=== PATIENT | male | born 1980 | race Caucasian/White ===

== ENCOUNTER 2016-08-28 18:06 | Inpatient (IN) | payer OTHER ==
[~2016-08-28] VITALS: Ht 190.5 cm; Wt 89.4 kg
--- NOTE | 2016-08-28 21:28 | ED ORDER SUMMARY ---
..... Patient: EVERARDO SWEENEY OrderSheet [facility] VisitID: [id number] [address] [place] [address] 36y, M Registration Date/Time: 08/28/2016 ORDER SHEET Weight: 90.7 kg (estimated) Allergies: No Known Drug Allergy GENERAL ORDERS: - (please place feet in warm water and soak them to rewarm them) (18:42 08/28/2016 HBivens A.R.N.P.) (Ack 19:18 ALawrence ER Tech1) (19:42 ALawrence ER Tech1) CBC w Diff Urgent (18:43 08/28/2016 HBivens A.R.N.P.) (Ack 18:52 KHoerner) (19:29 ALawrence ER Tech1) CMP Urgent (18:43 08/28/2016 HBivens A.R.N.P.) (Ack 18:52 KHoerner) (19:29 ALawrence ER Tech1) Urine Drug Screen Urgent (18:43 08/28/2016 HBivens A.R.N.P.) (Ack 18:52 KHoerner) (0:51 RCollier R.N.) UA-Culture if indicated Urgent (18:43 08/28/2016 HBivens A.R.N.P.) (Ack 18:52 KHoerner) (0:51 RCollier R.N.) MEDICATION ORDERS: Tdap IM 0.5 mL (NOW, per protocol) (19:15 08/28/2016 HBivens A.R.N.P.) (20:07 SSambou R.N.) IV FLUIDS: IV Saline Lock (18:43 08/28/2016 HBivens A.R.N.P.) (19:08 SSambou R.N.) Toradol IV 30 mg (NOW) (19:14 08/28/2016 HBivens A.R.N.P.) (20:02 RCollier R.N.) IV NS : initial bolus 1000 mL (1000 mL/hr), then none - (NOW) (20:01 08/28/2016 HBivens A.R.N.P.) (20:13 SSambnora R.N.) IV NS : initial bolus 1000 mL (1000 mL/hr), then none - (NOW) (21:24 08/28/2016 HBivens A.R.N.P.) (21:33 SSambou R.N.) ORDER SHEET NOTES: [Electronically signed by Niya Richards R.N. (02:38 08/29/2016)] [Electronically signed by Mariana PersaudR.N.PIris (13:22 08/30/2016)] [Electronically locked/signed by Niya Richards R.N. (02:38 08/29/2016)]
--- NOTE | 2016-08-28 21:28 | ED NURSING NOTES ---
Clinical Report - Nurses [facility] [address] [place] [address] 08/28/2016 18:06 Patient: EVERARDO SWEENEY TRIAGE Acuity: LEVEL 3. Chief Complaint: (Serra bite bilateral lower extremities). --18:18 Sheriff Guallpa R.N. 18:11 08/28/16. BP: 130/76. HR: 117. RR: 20. O2 saturation: 97%. Temp: 98.1 F. Pain level now: 03/20. --18:18 Sheriff Guallpa R.N. 18:11 08/28/16. BP: 130/76. HR: 117. RR: 20. O2 saturation: 97%. Temp: 98.1 F. Pain level now: 03/20. --18:18 Sheriff Guallpa R.N. Weight: 90.7 kg estimated. Height/Length: 75 inches Estimated. BMI: 25. --02:37 Niya Richards R.N. Medications None. --18:13 Sheriff Guallpa R.N. Allergies No Known Drug Allergy. --18:13 Sheriff Guallpa R.N. History This started yesterday. ( [place] the mountains [place] swimming [place] river in [place] SURGERY HX: ( Left Arm, Rt shoulder, Rt Ankle). SOCIAL HX: Light tobacco smoker- less than 1/2 a pack per day. No alcohol use or drug use. FALL RISK ASSESSMENT: Fall risk assessment completed. No fall risk identified. NUTRITIONAL RISK ASSESSMENT: The nutritional risk assessment revealed no deficiencies. FUNCTIONAL ASSESSMENT: Functional assessment: no impairments noted. LEARNING NEEDS ASSESSMENT: The learning needs assessment revealed no barriers. SKIN INTEGRITY ASSESSMENT: Abrasions noted on the right ankle. Abrasions, cuts and pressure sore with shallow crater (Stage II) noted on the left heel. --18:18 Sheriff Guallpa R.N. PROBLEMS: Alcoholism. Anxiety Reaction. --18:14 Sheriff Guallpa R.N. Interventions ID band on patient. To room. --18:18 Sheriff Guallpa R.N. PHYSICAL ASSESSMENT To room via stretcher. Patient gowned. GENERAL / NEURO / PSYCH: Alert. Oriented X 4. Appears in pain and anxious. HEENT: Pupils equal, round and reactive to light. No facial asymmetry noted. Mucous membranes are pink. RESPIRATORY: Respirations not labored. CVS: ( Bilateral lower extremities serra bite). SKIN: Skin is warm and dry. Abrasions and cuts noted on both heels. --18:20 Sheriff Guallpa R.N. NURSING PROGRESS NOTES Head of bed elevated. Two patient identifiers checked. Call light placed in reach. Side rails up x 2. Bed placed in lowest position. Brakes of bed on. Patient ready for evaluation- chart flagged. --18:21 Sheriff Guallpa R.N. 18:53 08/28/2016 Site #1 started via IV in the right upper arm with an 20g angiocath, with aseptic technique and good blood return; one attempt. Blood drawn: rainbow set. Labeled in the presence of the patient and sent to the lab. Saline lock flushed with 10 mL saline. --19:08 Sheriff Guallpa R.N. 20:02 08/28/2016 Toradol IVP 30 mg given over 1 minute(s) via site #1. Allergies verified and confirmed 5 rights. IV patency established site checked: no pain, redness, or swelling flushed thoroughly pre- and post-medication administration. IVP given by RN. --20:02 Niya Richards R.N. 20:07 08/28/2016 TDAP IM 0.5 mL given. (Lot#: [id number], expiration date: 03/18/2018). Given in the left deltoid. Allergies verified and confirmed 5 rights. Vaccine information statement provided to the patient. --20:07 Sheriff Guallpa R.N. 20:13 08/28/2016 Started bag #1 1000 mL IV Fluids IV NS (Saline); at 999 mL/hr over 45 minute(s) via site #1. Allergies verified and confirmed 5 rights. IV patency established site checked: no pain, redness, or swelling flushed thoroughly pre- and post-medication administration. --20:13 Sheriff Guallpa R.N. 21:31 08/28/16. BP: 111/55. HR: 128. RR: 20. O2 saturation: 98%. Temp: 99.3 F. Pain level now: 210. --21:32 Sheriff Guallpa R.N. 21:33 08/28/2016 Started bag #1 1000 mL IV Fluids IV NS (Saline); at 999 mL/hr over 1 minute(s) via site #1. Allergies verified and confirmed 5 rights. IV patency established site checked: no pain, redness, or swelling flushed thoroughly pre- and post-medication administration. --21:33 Sheriff Guallpa R.N. ( gave patient a sandwich,cheese and jello and gatorade around 2100). --23:34 Candace Lin 00:37 08/29/16. BP: 119/54. HR: 95. RR: 15. O2 saturation: 96% on room air. Temp: 99.4 F (oral). Pain level now: 010. --00:38 Niya Richards R.N. ( additional warm water added to tubs feet are soaking in. Pt asks to lay down, buckets placed on stools to facilitate pt laying down.). --00:40 Niya Richards R.N. 21:15 08/28/2016 IV Fluids IV NS Discontinued: bag #1 completed. Total amount infused: 1000 mL. IV patency established. IV site checked: no pain, redness, or swelling. IV flushed thoroughly. (stopped prior to my assuming care of pt.). --00:58 Niya Richards R.N. 22:25 08/28/2016 IV Fluids IV NS Discontinued: bag #2 completed. Total amount infused: 1000 mL. IV patency established. IV site checked: no pain, redness, or swelling. IV flushed thoroughly. (stopped prior to my assuming care of pt). --00:59 Niya Richards R.N. 00:45 08/29/2016 Site #1; patent and no signs of infection or infiltration. Line flushed with saline. Flushed with 10 mL saline. No pain noted. --00:59 Niya Richards R.N. DISPOSITION / DISCHARGE 01:38 08/29/16. BP: 113/70. HR: 101. RR: 15. O2 saturation: 96% on room air. --01:39 Niya Richards R.N. 01:39 08/29/2016 Site #[address] upon admission. Flushed with 10 mL saline; flushes easily. --01:39 Niya Richards R.N. Report was given to a nurse via a phone call. Report included patient's care, treatment, medications, reviewed medication reconcilliation, and condition (including any recent changes or anticipated changes). All questions were answered. Report was acknowledged and care was transferred. --01:39 Niya Richards R.N. 01:40. Transported via stretcher by nurse with IV. --02:37 Niya Richards R.N. Locked/Released at 08/29/2016 2:38 by Niya Richards R.N.
--- NOTE | 2016-08-28 21:28 | ED CLINICAL REPORT ---
Clinical Report - Physicians/Mid Levels [facility] [address] [place] [address] 08/28/2016 18:06 Patient: EVERARDO SWEENEY Time Seen: 1814; initial patient contact, initial documentation, patient care assumed. Arrived- By private vehicle. Historian- patient. HISTORY OF PRESENT ILLNESS Chief Complaint: LOWER EXTREMITY ALTERED SENSATION and ; ;(frostbite). This started yesterday and is still present. Severity is described as being severe. The quality is noted to be "pain". No radiation. Not relieved by anything- worsened by walking. Symptoms located in the area of the right foot and left foot. The patient has not had redness. No swelling, bladder dysfunction, bowel dysfunction or motor loss. He has had difficulty walking. Sensory loss. ( pt states that yesterday he heard voices and he took off in his car out to [place] to the mountains, got down to his boxer underwear and went running thru the mountains and in the river, no shoes, pt found today and brought in). Patient notes an injury. Mechanism of injury- (frostbite). Occurred in the mountains (river). Similar symptoms previously: None. Recent medical care: Not recently seen/assessed. REVIEW OF SYSTEMS No chest pain, difficulty breathing, fever, neck pain or back pain. No abdominal pain. c/o his feet being super cold, numb, and hard to move them, also c/o being cold all over, having numerous scratches on his arms and legs from running into blackberry bushes, c/o feet being discolored and being very white. All systems otherwise negative, except as recorded above. PAST HISTORY See nurses notes. ( PROBLEMS: Alcoholism. Anxiety Reaction. --18:14 Sheriff Guallpa R.N.). SOCIAL HISTORY Light tobacco smoker. Occasional alcohol use. No drug use. No recent travel. Is a local resident. FAMILY HISTORY Negative. ADDITIONAL NOTES The nursing notes have been reviewed with agreement regarding the chief complaint, HPI, ROS, PMH and patient medications and allergies. PHYSICAL EXAM Vital Signs: 08/28/2016 18:11 BP: 130/76. HR: 117. RR: 20. O2 saturation: 97%. Temp: 98.1 F. Pain level now: 03/20. Have been reviewed as abnormal and appear to be correct. Blood pressure normal. Tachycardic. Respiratory rate normal. Temperature normal. Oxygen saturation normal. Appearance: Alert. Oriented X3. No acute distress. Eyes: Pupils equal, round and reactive to light. Eyes normal inspection. ENT: Ears normal. Nose normal. Pharynx normal. Neck: Normal inspection. Neck supple. CVS: Heart rate / rhythm abnormal. Tachycardia (ventricular rate = 110). Heart sounds normal. Respiratory: No respiratory distress. Breath sounds normal. Abdomen: Soft and nontender. No organomegaly. Back: Normal inspection. No tenderness. ROM normal. Skin: Skin not intact. Skin dry but cool. Abnormal skin color. Normal skin turgor. Extremities: Lower extremities do not exhibit normal ROM. Lower extremity edema present. (multiple abrasions all over lower and upper extremeties, no s/s of infection, no dc, no swelling B feet- frostbite obvious, with questionable tissue necrosis noted to B toe 1, 2, toes very dark purple, almost black, no sensation, unable to move them, toes stiff, cold, no cap refill and sores/abrasions present on medial side of big toes, toes 3 less purple, no sensation, no movement, toes 4 & 5 light purple to blue, very minimal sensation, no movement, no cap refill in any toes, rest of feet range from dark purple to blue, blue continues to ankle area where erythema becomes visible and there is some sensation, cold to cool to touch, decreased rom of ankles, erythema continues up ankles to knee and disappears by the knees, going from redder to pink to white, from of knees, and popliteal pulses intact, legs cool from knees up, thighs appear normal except for the abrasions and mildly cool, femoral pulses normal +2). Extremities not otherwise negative. Gait: Abnormal gait. Neuro: Oriented X 3. No motor deficit. Sensory deficit noted. Sensory deficit present. PROGRESS AND PROCEDURES Course of Care: 1824. asked dr ndiaye to come to bedside to exam feet with me 183. asked staff to place feet in warm water for rewarming, pt already covered in warm blankets 1844. rest of exam finished 1944. pt asleep resting quietly, nad, resp even and unlabored, water cool, no real change in looks of feet asked staff to replace water 2019. Discussed admit with Dr Jeffrey, after reviewing pt's case, frostbite being due to pt hearing voices and psych hx, thought pt would do better at [facility], where they have psychiatry services available asked nurse to continue with warm soaks as water cools and keep the warm blankets on pt as well 2049. Electric Relay Tester reporting that she spoke to the Structural Engineering Technician at [facility], and that the hospitalist declined the transfer, stating we could treat frostbite here, explained psych issue, but still declined 2119. Spoke to Dr Jeffrey, again, aware that the hospitalist at [facility] declined the transfer, and he agreed to take the pt and admit here, transfer out for psych later if needed pt feeling better, and had eaten, feet and ankles appear really no different than initial exam, except possibly a little less purple, still concerned that the digits are necrotic and concerns were voiced to nurse/care team and pt. Discussed case with on-call health care provider, (call returned 2019 Dr Jeffrey). Reviewed test results. Differential Diagnosis: Other possible considerations: substance abuse, psychosis, bipolar, abrasions, lacs, frostbite. Above considerations are based on history, physical exam, reassessment and laboratory data. Differential diagnosis was discussed with patient. Disposition: Admitted to Acute Care. 21:28. Condition: good and stable. CLINICAL IMPRESSION Multiple superficial abrasions to the right forearm, right wrist, right hand, right thigh, right knee, right lower leg, right ankle and right foot and left forearm, left wrist, left hand, left thigh, left knee, left lower leg, left ankle and left foot. Frostbite with partial thickness skin loss involving the right 3rd toe, right 4th toe, right 5th toe, left 3rd toe, left 4th toe and left 5th toe. Frostbite with full thickness tissue necrosis involving the right great toe, right 2nd toe, left great toe and left 2nd toe. (Electronically signed by Mariana Persaud A.R.N.P. 08/30/2016 13:22)
--- NOTE | 2016-08-28 21:28 | ED ORDER SUMMARY ---
..... Patient: EVERARDO SWEENEY OrderSheet [facility] VisitID: [id number] [address] [place] [address] 36y, M Registration Date/Time: 08/28/2016 ORDER SHEET Weight: 90.7 kg (estimated) Allergies: No Known Drug Allergy GENERAL ORDERS: - (please place feet in warm water and soak them to rewarm them) (18:42 08/28/2016 HBivens A.R.N.P.) (Ack 19:18 ALawrence ER Tech1) (19:42 ALawrence ER Tech1) CBC w Diff Urgent (18:43 08/28/2016 HBivens A.R.N.P.) (Ack 18:52 KHoerner) (19:29 ALawrence ER Tech1) CMP Urgent (18:43 08/28/2016 HBivens A.R.N.P.) (Ack 18:52 KHoerner) (19:29 ALawrence ER Tech1) Urine Drug Screen Urgent (18:43 08/28/2016 HBivens A.R.N.P.) (Ack 18:52 KHoerner) (0:51 RCollier R.N.) UA-Culture if indicated Urgent (18:43 08/28/2016 HBivens A.R.N.P.) (Ack 18:52 KHoerner) (0:51 RCollier R.N.) MEDICATION ORDERS: Tdap IM 0.5 mL (NOW, per protocol) (19:15 08/28/2016 HBivens A.R.N.P.) (20:07 SSambou R.N.) IV FLUIDS: IV Saline Lock (18:43 08/28/2016 HBivens A.R.N.P.) (19:08 SSambou R.N.) Toradol IV 30 mg (NOW) (19:14 08/28/2016 HBivens A.R.N.P.) (20:02 RCollier R.N.) IV NS : initial bolus 1000 mL (1000 mL/hr), then none - (NOW) (20:01 08/28/2016 HBivens A.R.N.P.) (20:13 SSambnora R.N.) IV NS : initial bolus 1000 mL (1000 mL/hr), then none - (NOW) (21:24 08/28/2016 HBivens A.R.N.P.) (21:33 SSambou R.N.) ORDER SHEET NOTES: [Electronically signed by Niya Richards R.N. (02:38 08/29/2016)] [Electronically signed by Mariana PersaudR.N.PIris (13:22 08/30/2016)] [Electronically locked/signed by Niya Richards R.N. (02:38 08/29/2016)]
--- NOTE | 2016-08-29 00:35 | Progress Note ---
Subjective General Admission History and Physical Examination Patient Name: Baltazar Kim Admission Date: August 28, 2016 Primary Care Provider: None Attending Physician: Hardy Jeffrey M.D. Admitting Physician: Hardy Jeffrey M.D. Code Status: Full Code Room: 208 SUBJECTIVE Historian: Patient Reliability: Fair-poor Chief Complaint: Frostbite History of Present Illness: The patient is a 36-year-old white male with a previous history of psychiatric disease who presented to [facility] emergency department secondary to suspected frostbite of both feet. [facility] ER evaluation was consistent with probable frostbite both feet, auditory hallucinations. Secondary to the above, the patient was admitted by Hardy Jeffrey M.D. for further evaluation and treatment. The [place] only in undewear walking in the snow. Patient confused at time of presentation. No other history available. ER Evaluation consistent with frostbite feet, illicit drug use-methamphetatmine. Patient not hypothermic. Secondary to above patient admitted for further evaluation and treatment. PAST MEDICAL HISTORY Illnesses: 1. Illicit drug use-methamphetamine 2. History of alcohol abuse Allergies: 1. No Known Drug Allergies Medications: 1. None Surgery: 1. Left shoulder surgery 2. Cyst removal Injuries: 1. Fractured ribs x 3 2. AC separation Hospitalizations: 1. For above surgery FAMILY HISTORY Parents: 1. Father, , 67, lung cancer 2. Mother, Living, 62, Healthy Other significant family history: None SOCIAL HISTORY 1. Marital Status: Single 2. Christianity: Agnostic 3. Education: High school, 1 year college 4. Employment History: Unemployed, Insurance sales, scuba instructor in past. 5. Occupational health exposures: None HABITS 1. Tobacco: Past use 2. Drugs: Marijuana, Methamphetamine, 3. Alcohol: None 4. Caffeine: 1 cup coffee daily HEALTH SUPERVISION Item/Test 1. No recent IMMUNIZATIONS: 1. Pneumococcal: No 2. Influenza: No recent 3. Tetanus: Unknown ADVANCED DIRECTIVES: 1. Living well: Yes 2. POLST: No 3. Code Status: Full Code 4. Durable Power Director Private Health care: No 5. Donor card: Yes REVIEW OF SYSTEMS Remarkable for those things stated in the history of present illness and past medical history. Seventeen point review of system completed with the following notable findings: Skin: See above Physical Exam Vital Signs / I&Os Blood pressure: 130/76 mmHg Pulse: 117 Respirations: 20 Temperature: 98.1 O2 sat room air: 97% General Appearance Alert, Cooperative, No acute distress HEENT Atraumatic, PERRLA, EOMI, Moist mucous membranes Lungs Clear to auscultation, Normal air movement Neck Supple, No JVD, No masses Cardiovascular Regular rate and rhythm, Normal S1 and S2, No murmurs, gallops, rubs Abdomen Normal bowel sounds, Soft, No tenderness, No guarding Extremities No cyanosis, No clubbing, Edema bilateral feet. Cyanosis present distal foot left side, toes right side. Multiple excoriations, abrasions bilateral lower extremities/feet. See photo documentation Skin Multiple abrasions/excoriations, eschar Neurological Cranial nerves intact, Strength 5/5 x4 ext's, No lateralizing signs Psych/Mental Status Mood normal, Confused LAB Results Laboratory Tests 08/28 1858 Hematology WBC (4.5 - 11.5 K/uL) 15.8 RBC (4.50 - 5.90 M/uL) 4.44 Hgb (13.5 - 17.5 gm/dL) 13.0 Hct (41.0 - 53.0 %) 38.8 MCV (80 - 100 fL) 87 MCH (26 - 34 pg) 29 RDW (11.6 - 14.8 %) 13.3 Neut % (Auto) (50 - 75 %) 81.0 Lymph % (Auto) (25 - 40 %) 10.0 Vance % (Auto) (3 - 14 %) 8.8 Eos % (Auto) (0 - 4 %) 0 Baso % (Auto) (0 - 2 %) 0.2 Plt Count, EDTA (150 - 400 K/uL) 261 PUBS MCHC (31 - 37 g/dL) 34 Toxicology Urine Opiates Screen Cancelled Urine Methadone Screen Cancelled Ur Barbiturates Screen Cancelled U Amphetamin/Meth Scrn Cancelled MDMA (Ecstasy) Screen Cancelled U Benzodiazepines Scrn Cancelled Urine Cocaine Screen Cancelled U Cannabinoids Screen Cancelled Urines Urine Color YELLOW Urine Appearance CLEAR Urine pH (5.0 - 8.0) 6.0 Ur Specific Ron[place] (1.010 - 1.030) 1.020 Urine Protein (NEGATIVE) NEGATIVE Urine Ketones (NEGATIVE) 3+ Urine Blood (NEGATIVE) 2+ Urine Nitrite (NEGATIVE) NEGATIVE Urine Bilirubin (NEGATIVE) 1+ Ur Bilirubin Confirm (NEGATIVE) NEGATIVE Urine Urobilinogen (0.2 - 1.0 EU/dL) 0.2 Ur Leukocyte Esterase (NEGATIVE) NEGATIVE Urine RBC (0 - 1 rbc/hpf) 3-5 Urine WBC (0 - 1 wbc/hpf) 0-1 Ur Epithelial Cells (0 - 5 EPI/hpf) 0-1 Urine Bacteria (NONE SEEN) TRACE (<1+) Urine Glucose (NEGATIVE) NEGATIVE Urine Comment CULT NOT INDICATED 08/29 1827 Chemistry Plasma Sodium (136 - 145 mmol/L) 133 Plasma Potassium (3.5 - 5.1 mmol/L) 4.3 Plasma Chloride (98 - 107 mmol/L) 99 CO2 (Enzymatic) (21 - 32 mmol/L) 16 BUN (7 - 18 mg/dL) 37 Creatinine (0.6 - 1.3 mg/dL) 0.9 Est GFR ( Amer) (mL/min) >60 Est GFR (Non-Af Amer) (mL/min) >60 Glucose (70 - 110 mg/dL) 112 Plasma Calcium (8.5 - 10.1 mg/dL) 8.9 Total Bilirubin (0.0 - 1.0 mg/dL) 1.0 AST (15 - 37 U/L) 280 ALT (12 - 78 U/L) 85 Alkaline Phosphatase (46 - 116 U/L) 90 Total Protein (6.4 - 8.2 g/dL) 7.1 Albumin (3.3 - 5.0 g/dL) 3.9 Toxicology Drugs Detected Amphetamines Urine Drug Screen POSITIVE,Unconfirmed Assessment and Plan Problem List 1. Frostbite of both feet Plan -Patient presents with findings of frostbite bilateral feet -Patient not a candidate for thrombolytic therapy -Monitor -Surgical consultation -Wound care consultation 2. Illicit drug use Status Chronic Onset Date Unknown Plan -Patient with findings of illicit drug use-methamphetamine -Monitor -History of psychiatric disease, recent auditory hallucinations questionably related to drug usage 3. Hyponatremia Status Acute Onset Date Unknown Plan -Patient with mild hyponatremia -Monitor -No fluid restriction at this time. 4. Elevated LFTs Status Acute Onset Date Unknown Plan -Patient with findings of elevated LFTs -Repeat in a.m. -Further workup based on serial LFT evaluation Current status: Fair, unstable Anticipated discharge date: Anticipated discharge in 3-4 days Anticipated discharge placement: Home Patient care time: Time spent in chart review, patient interview, physical exam, CPOE, and care documentation: 70 minutes Visit to patient today: 1 Complexity of care: High E&M Codes Admission: Inpt-High/[id number]
[2016-08-29 02:01] VITALS: BP 138/62
[2016-08-29 07:48] VITALS: BP 124/72
--- NOTE | 2016-08-29 09:33 | NUR ---
SW ADVISED THIS RN THAT BRACELET TO LLE IS OK TO DC. THIS RN CUT OFF W/SCISSORS W/O PROBLEMS. NO SKIN BREAKDOWN UNDER BRACELET.
[2016-08-29 11:41] VITALS: BP 122/67
[2016-08-29 15:00] VITALS: BP 147/62
--- NOTE | 2016-08-29 16:04 | NUR ---
CHANGED DRSGS TO BILATERAL FEET THIS EVENING DUE TO SATURATING THROUGH ON SOME PARTS OF THE GAUZE. BILATERAL FEET HAVE BLISTERS AT THE SOLES WHICH ARE INTACT. FEET ARE PALE AND BLUE IN SOME AREAS. L FOOT GREAT TOE IS PURPLE IN COLOR. R FOOT SATURATED AT BOTTOM OF FOOT WHERE BLISTER IS BUT BLISTER APPEARS INTACT. DRAINAGE IS SEROSANG. L FOOT SATURATED AT GREAT TOE MEDIAL AREA AND AT DISTAL TOES. CLEANSED WITH NS AND PLACED XEROFORM TO OPEN AREAS TO AVOID DRSG STICKING TO GAUZE UPON REMOVAL. WRAPPED WITH KERLIX AND SECURED WITH FABRIC TAPE. ELEVATED LEGS ON PILLOW TO PATIENT'S COMFORT. PATIENT HAS MINIMAL SENSATION TO THE SOLES OF HIS FEET AND HAS DECREASED SENSATION TO HIS TOES. SOME TOES HE DOES NOT HAVE SENSATION IN.
--- NOTE | 2016-08-29 16:31 | NUR ---
NUTRITION NOTE: Pt admitted with frostbite bilateral feet. Pt po intake ~100%, appetite appears intact so far. Rec continue general diet as appears appropriate, RD to follow up with complete assessment per protocol.
--- NOTE | 2016-08-29 18:15 | NUR ---
PATIENT'S MOTHER ARYAN CALLED AND PATIENT OK'D THIS RN SPEAKING TO HER. UPDATED MOTHER ON PATIENT'S STATUS. THIS RN TOLD MOTHER WHAT PATIENT HAD STATED FOR HOW HE HAD END UP ADMITTED TO [facility]. MOTHER STATED THAT 'ALL OF THE STORY IS PROBABLY ACCURATE EXCEPT I DON'T THINK HE IS TELLING YOU THE TRUTH ABOUT THE DRUGS.' WILL CONTINUE TO MONITOR PATIENT.
[2016-08-29 18:30] VITALS: BP 125/72
--- NOTE | 2016-08-29 19:42 | NUR ---
SPOKE TO MOM, ARYAN AND ARYAN STATED PATIENT WAS VERY SUCCESSFUL IN INSURANCE AND STARTED USING METH ABOUT A YEAR AGO AND HAD MANY EPISODES OF PARANOIA THAT COST HIM HIS JOB AND ENDED HIM UP HOMELESS AND LIVING IN HIS CAR. MOM LIVES IN [place]. PATIENT IS ESTRANGED FROM HIS BROTHER AND SISTER DUE TO HIS DRUG USE.
[2016-08-29 22:34] VITALS: BP 129/79
--- NOTE | 2016-08-29 23:10 | NUR ---
CALLED DR ARCE REGARDING PATIETNS HIGH TEMPERATURE.
--- NOTE | 2016-08-30 02:30 | NUR ---
Hospitalist ordered IV antibiotics as the patient has developed fever. Staff also collected blood cultures as ordered.
[2016-08-30 03:40] VITALS: BP 146/95
[2016-08-30 07:18] VITALS: BP 146/67
--- NOTE | 2016-08-30 07:40 | Progress Note ---
Subjective General Note Date: August 30, 2016 Admission Date: August 29, 2016 Hospital Day: 2 PCP: None Status: Inpatient Advanced Directive: Full Code Room: 208 Brief History: The patient is a 36-year-old white male with a previous history of psychiatric disease who presented to [facility] emergency department secondary to suspected frostbite of both feet. [facility] ER evaluation was consistent with probable frostbite both feet, auditory hallucinations. Secondary to the above, the patient was admitted by Hardy Jeffrey M.D. for further evaluation and treatment. For other history present illness, past medical history, family history, social history, review of systems, and admission physical examination please see the patient's history and physical examination and ER visit note in the patient's medical record. Subjective: The patient states he is doing well other than pain in feet. Mental status unchanged-improved Patient requests: Improved pain control Medications and Allergies Medications Current Medications Sig/Mateo Start time Last Medication Dose Route Stop Time Status Admin Influenza Virus 0.5 ML 0900 08/30 0900 AC Vaccine IM 08/30 1800 Piperacillin/ 50 ML Q6HR 08/30 0200 AC 08/30 Tazobactam/Dextrose IV 0706 Vancomycin HCl See Dose .[PER PHARMACY] 08/30 011 UNi Insts (1) IV Enoxaparin Sodium 40 MG DAILY 08/29 0900 08/29 SC 0929 Pantoprazole Sodium 40 MG DAILY@0600 08/29 0600 AC 08/30 Sesquihydrate PO 0607 Acetaminophen 650 MG Q6H PRN 08/29 0115 AC 08/30 PO 0012 Docusate Sodium 250 MG BID PRN 08/29 0115 AC 08/30 PO 0012 Hydromorphone HCl 1 MG Q1H PRN 08/29 011 AC 08/29 IV 2241 Ondansetron HCl 4 MG Q6H PRN 08/29 011 AC IV Sodium Chloride 1,000 ML ASDIRECTED 08/29 011 08/30 IV 0113 Dose Instructions: (1)Vancomycin HCl: DOSING PER PHARMACY Allergies Coded Allergies: NKA (08/29/16) Physical Exam Vital Signs / I&Os Vital Signs Date Time Temp Pulse Resp B/P Pulse O2 O2 Flow FiO2 Ox Delivery Rate 08/30 0718 98.6 90 18 146/67 95 Room Air 0.0 08/30 0340 100.0 105 18 146/95 98 Room Air 08/30 0000 0.0 08/29 2234 100.8 91 18 129/79 96 Room Air 08/29 2155 98.8 08/29 1930 0.0 08/29 1830 98.8 95 18 125/72 94 Room Air 08/29 1500 98.1 93 18 147/62 100 Room Air 08/29 1141 97.9 97 18 122/67 98 Room Air 0.0 08/29 0748 98.2 92 18 124/72 98 I&O 08/30 0000 08/29 1600 08/29 0800 Intake Total 2857 680 386 Output Total 975 1000 Balance 1882 -320 386 General Appearance Alert, Oriented X3, Cooperative, No acute distress Lungs Clear to auscultation, Normal air movement Cardiovascular Regular rate and rhythm, Normal S1 and S2 Abdomen Normal bowel sounds, Soft, No tenderness Extremities No cyanosis, No clubbing, Persistent edema bilaterally feet. Persistent cyanosis with large bulla forming right and left foot. Good dorsalis pedis pulses Neurological Cranial nerves intact, No lateralizing signs Psych/Mental Status Mental status normal, Mood normal LAB Results Laboratory Tests 08/30 08/30 08/29 08/29 0530 0530 1830 1024 Chemistry Plasma Sodium (136 - 145 mmol/L) 138 138 Plasma Potassium (3.5 - 5.1 mmol/L) 4.2 4.2 Plasma Chloride (98 - 107 mmol/L) 104 105 CO2 (Enzymatic) (21 - 32 mmol/L) 28 24 BUN (7 - 18 mg/dL) 10 17 Creatinine (0.6 - 1.3 mg/dL) 0.9 0.9 Est GFR ( Amer) (mL/min) >60 >60 Est GFR (Non-Af Amer) (mL/min) >60 >60 Glucose (70 - 110 mg/dL) 157 116 Plasma Calcium (8.5 - 10.1 mg/dL) 7.8 8.0 Total Bilirubin (0.0 - 1.0 mg/dL) 0.6 AST (15 - 37 U/L) 218 ALT (12 - 78 U/L) 94 Alkaline Phosphatase (46 - 116 U/L) 62 Creatine Kinase (24 - 260 U/L) 91201 9690 9200 CK-MB (CK-2) (0.5 - 3.2 ng/mL) 47.9 79.3 91.2 CK/CKMB % Calc (0.0 - 4.0 %) 0.5 0.8 1.0 Total Protein (6.4 - 8.2 g/dL) 5.5 Albumin (3.3 - 5.0 g/dL) 2.7 Hematology WBC (4.5 - 11.5 K/uL) 9.1 RBC (4.50 - 5.90 M/uL) 3.59 Hgb (13.5 - 17.5 gm/dL) 10.6 Hct (41.0 - 53.0 %) 31.8 MCV (80 - 100 fL) 88 MCH (26 - 34 pg) 29 RDW (11.6 - 14.8 %) 13.4 Neut % (Auto) (50 - 75 %) 67.3 Lymph % (Auto) (25 - 40 %) 19.1 [place] % (Auto) (3 - 14 %) 12.3 Eos % (Auto) (0 - 4 %) 1.2 Baso % (Auto) (0 - 2 %) 0.1 Plt Count, EDTA (150 - 400 K/uL) 138 PUBS MCHC (31 - 37 g/dL) 33 Microbiology Date/Time Procedure - Status Source Growth 08/30 220 Blood Culture - RECD BLOOD 08/30 216 Blood Culture - RECD BLOOD Imaging CT Scan Feet IMPRESSION: 1. Smooth fluid-filled blisters along the plantar surface of both feet without evidence of gas-forming organism or underlying radiodense foreign body. 2. Fairly extensive subcutaneous edema medial and lateral in the feet extending cranial towards the ankles. 3. Osseous structures appear normal. Dictated by: RICAHRD WALDRON MD D: MOISES;08/30/16 1621 Assessment and Plan Problem List 1. Frostbite of both feet Plan -Persistent findings of tissue damage bilaterally feet -Evaluation by Dr. Niño today. -CT scan shows extensive edema without findings of soft tissue foreign body or abscess. -Patient with fever. -Initiate antimicrobial therapy with vancomycin/Zosyn 2. Illicit drug use Status Chronic Onset Date Unknown Plan -Patient with history of extensive use of methamphetamine -No problems at this time -Mental status improved -Enroll in drug treatment program post hospitalization 3. Hyponatremia Status Acute Onset Date Unknown Plan -Resolved -Sodium 138 4. Elevated LFTs Status Acute Onset Date Unknown Plan -LFTs mildly elevated -Stable to slightly improved -Bilirubin unremarkable, alkaline phosphatase unremarkable -Monitor 5. Rhabdomyolysis Status Acute Onset Date Unknown Plan -Patient with findings of rhabdomyolysis -Renal function stable -CPK 10,166 today -Continue IV hydration -Urinary output good 6. Cellulitis Status Acute Onset Date Unknown Plan -Patient with findings suggestive of possible cellulitis bilateral feet -Vancomycin/Zosyn -Monitor Current status: Fair, unstable Anticipated discharge date: Unknown Anticipated discharge placement: Home versus senior care facility Patient care time: Time spent in chart review, patient interview, physical exam, CPOE, and care documentation: 35 minutes Visit to patient today: 2 Complexity of care: Moderate E&M Codes Rounding: Inpt-Moderate/87354
--- NOTE | 2016-08-30 07:40 | Progress Note ---
Subjective General Note Date: August 30, 2016 Admission Date: August 29, 2016 Hospital Day: 2 PCP: None Status: Inpatient Advanced Directive: Full Code Room: 208 Brief History: The patient is a 36-year-old white male with a previous history of psychiatric disease who presented to [facility] emergency department secondary to suspected frostbite of both feet. [facility] ER evaluation was consistent with probable frostbite both feet, auditory hallucinations. Secondary to the above, the patient was admitted by Hardy Jeffrey M.D. for further evaluation and treatment. For other history present illness, past medical history, family history, social history, review of systems, and admission physical examination please see the patient's history and physical examination and ER visit note in the patient's medical record. Subjective: The patient states he is doing well other than pain in feet. Mental status unchanged-improved Patient requests: Improved pain control Medications and Allergies Medications Current Medications Sig/Mateo Start time Last Medication Dose Route Stop Time Status Admin Influenza Virus 0.5 ML 0900 08/30 0900 AC Vaccine IM 08/30 1800 Piperacillin/ 50 ML Q6HR 08/30 0200 AC 08/30 Tazobactam/Dextrose IV 0706 Vancomycin HCl See Dose .[PER PHARMACY] 08/30 011 UNi Insts (1) IV Enoxaparin Sodium 40 MG DAILY 08/29 0900 08/29 SC 0929 Pantoprazole Sodium 40 MG DAILY@0600 08/29 0600 AC 08/30 Sesquihydrate PO 0607 Acetaminophen 650 MG Q6H PRN 08/29 0115 AC 08/30 PO 0012 Docusate Sodium 250 MG BID PRN 08/29 0115 AC 08/30 PO 0012 Hydromorphone HCl 1 MG Q1H PRN 08/29 011 AC 08/29 IV 2241 Ondansetron HCl 4 MG Q6H PRN 08/29 011 AC IV Sodium Chloride 1,000 ML ASDIRECTED 08/29 011 08/30 IV 0113 Dose Instructions: (1)Vancomycin HCl: DOSING PER PHARMACY Allergies Coded Allergies: NKA (08/29/16) Physical Exam Vital Signs / I&Os Vital Signs Date Time Temp Pulse Resp B/P Pulse O2 O2 Flow FiO2 Ox Delivery Rate 08/30 0718 98.6 90 18 146/67 95 Room Air 0.0 08/30 0340 100.0 105 18 146/95 98 Room Air 08/30 0000 0.0 08/29 2234 100.8 91 18 129/79 96 Room Air 08/29 2155 98.8 08/29 1930 0.0 08/29 1830 98.8 95 18 125/72 94 Room Air 08/29 1500 98.1 93 18 147/62 100 Room Air 08/29 1141 97.9 97 18 122/67 98 Room Air 0.0 08/29 0748 98.2 92 18 124/72 98 I&O 08/30 0000 08/29 1600 08/29 0800 Intake Total 2857 680 386 Output Total 975 1000 Balance 1882 -320 386 General Appearance Alert, Oriented X3, Cooperative, No acute distress Lungs Clear to auscultation, Normal air movement Cardiovascular Regular rate and rhythm, Normal S1 and S2 Abdomen Normal bowel sounds, Soft, No tenderness Extremities No cyanosis, No clubbing, Persistent edema bilaterally feet. Persistent cyanosis with large bulla forming right and left foot. Good dorsalis pedis pulses Neurological Cranial nerves intact, No lateralizing signs Psych/Mental Status Mental status normal, Mood normal LAB Results Laboratory Tests 08/30 08/30 08/29 08/29 0530 0530 1830 1024 Chemistry Plasma Sodium (136 - 145 mmol/L) 138 138 Plasma Potassium (3.5 - 5.1 mmol/L) 4.2 4.2 Plasma Chloride (98 - 107 mmol/L) 104 105 CO2 (Enzymatic) (21 - 32 mmol/L) 28 24 BUN (7 - 18 mg/dL) 10 17 Creatinine (0.6 - 1.3 mg/dL) 0.9 0.9 Est GFR ( Amer) (mL/min) >60 >60 Est GFR (Non-Af Amer) (mL/min) >60 >60 Glucose (70 - 110 mg/dL) 157 116 Plasma Calcium (8.5 - 10.1 mg/dL) 7.8 8.0 Total Bilirubin (0.0 - 1.0 mg/dL) 0.6 AST (15 - 37 U/L) 218 ALT (12 - 78 U/L) 94 Alkaline Phosphatase (46 - 116 U/L) 62 Creatine Kinase (24 - 260 U/L) 03154 9690 9200 CK-MB (CK-2) (0.5 - 3.2 ng/mL) 47.9 79.3 91.2 CK/CKMB % Calc (0.0 - 4.0 %) 0.5 0.8 1.0 Total Protein (6.4 - 8.2 g/dL) 5.5 Albumin (3.3 - 5.0 g/dL) 2.7 Hematology WBC (4.5 - 11.5 K/uL) 9.1 RBC (4.50 - 5.90 M/uL) 3.59 Hgb (13.5 - 17.5 gm/dL) 10.6 Hct (41.0 - 53.0 %) 31.8 MCV (80 - 100 fL) 88 MCH (26 - 34 pg) 29 RDW (11.6 - 14.8 %) 13.4 Neut % (Auto) (50 - 75 %) 67.3 Lymph % (Auto) (25 - 40 %) 19.1 [place] % (Auto) (3 - 14 %) 12.3 Eos % (Auto) (0 - 4 %) 1.2 Baso % (Auto) (0 - 2 %) 0.1 Plt Count, EDTA (150 - 400 K/uL) 138 PUBS MCHC (31 - 37 g/dL) 33 Microbiology Date/Time Procedure - Status Source Growth 08/30 220 Blood Culture - RECD BLOOD 08/30 216 Blood Culture - RECD BLOOD Imaging CT Scan Feet IMPRESSION: 1. Smooth fluid-filled blisters along the plantar surface of both feet without evidence of gas-forming organism or underlying radiodense foreign body. 2. Fairly extensive subcutaneous edema medial and lateral in the feet extending cranial towards the ankles. 3. Osseous structures appear normal. Dictated by: RICHARD WALDRON MD D: MOISES;08/30/16 1627 Assessment and Plan Problem List 1. Frostbite of both feet Plan -Persistent findings of tissue damage bilaterally feet -Evaluation by Dr. Niño today. -CT scan shows extensive edema without findings of soft tissue foreign body or abscess. -Patient with fever. -Initiate antimicrobial therapy with vancomycin/Zosyn 2. Illicit drug use Status Chronic Onset Date Unknown Plan -Patient with history of extensive use of methamphetamine -No problems at this time -Mental status improved -Enroll in drug treatment program post hospitalization 3. Hyponatremia Status Acute Onset Date Unknown Plan -Resolved -Sodium 138 4. Elevated LFTs Status Acute Onset Date Unknown Plan -LFTs mildly elevated -Stable to slightly improved -Bilirubin unremarkable, alkaline phosphatase unremarkable -Monitor 5. Rhabdomyolysis Status Acute Onset Date Unknown Plan -Patient with findings of rhabdomyolysis -Renal function stable -CPK 10,166 today -Continue IV hydration -Urinary output good 6. Cellulitis Status Acute Onset Date Unknown Plan -Patient with findings suggestive of possible cellulitis bilateral feet -Vancomycin/Zosyn -Monitor Current status: Fair, unstable Anticipated discharge date: Unknown Anticipated discharge placement: Home versus [facility] Patient care time: Time spent in chart review, patient interview, physical exam, CPOE, and care documentation: 35 minutes Visit to patient today: 2 Complexity of care: Moderate E&M Codes Rounding: Inpt-Moderate/57299
--- NOTE | 2016-08-30 08:35 | NUR ---
RECEIVED PT AWAKE, ALERT, ORIENTED, COHERENT, COOPERATIVE. V/S TAKEN AND RECORDED. ASSESSMENT DONE. PT COMPLAINT OF 5/10 PAIN LEVEL ON BOTH L.E. DIMINISHED SENSATION, SWELLING ON BOTH FEET. DRESSING ON BOTH FEET WITH DRIED BLOOD. SEEN AND EXAMINED BY DR FLEMING AND MS CHRISTINE EARLIER. WAITING FOR DR THORPE TO SEE PT. PT UNDERSTOOD. DUE MEDS GIVEN. NEEDS ATTENDED.
[2016-08-30 11:05] VITALS: BP 142/83
--- NOTE | 2016-08-30 13:23 | ED MAR SUMMARY ---
..... Medication Administration Record [facility] [address] [place] [address] Patient: EVERARDO SWEENEY Visit ID: [id number] 36y, M Weight: 90.7 kg Height/Length: 75 in BMI: 25 ALLERGIES: No Known Drug Allergy Given 20:02 08/28/2016 Niya Richards R.N. Medication Administered: TORADOL [IVP], Dose: 30 mg IVP over 1 minute(s), Site: #1 right upper arm. Medication Ordered: Toradol IV 30 mg (NOW). Given 20:07 08/28/2016 Sheriff Guallpa R.N. Medication Administered: TDAP [IM], Dose: 0.5 mL IM. Medication Ordered: Tdap IM 0.5 mL (NOW, per protocol). Start 20:13 08/28/2016 Sheriff Guallpa R.N., Stop 21:15 08/28/2016 Niya Richards R.N. Medication Administered: IV NS (SALINE), Dose: IV Fluids over 45 minute(s), Rate: 999 mL/hr, Dispensed: 1000 mL bag, Site: #1 right upper arm. Medication Ordered: IV NS : initial bolus 1000 mL (1000 mL/hr), then none - (NOW). Start 21:33 08/28/2016 Sheriff Guallpa R.N., Stop 22:25 08/28/2016 Niya Richards RIrisNIris Medication Administered: IV NS (SALINE), Dose: IV Fluids over 1 minute(s), Rate: 999 mL/hr, Dispensed: 1000 mL bag, Site: #1 right upper arm. Medication Ordered: IV NS : initial bolus 1000 mL (1000 mL/hr), then none - (NOW).
--- NOTE | 2016-08-30 13:23 | ED MED RECONCILIATION SUMMARY ---
Patient: EVERARDO SWEENEY Medication Reconciliation Report [facility] VisitID: [id number] [address] [place] [address] 36y, M Registration Date/Time: 08/28/2016 Weight: 90.7 kg Height/Length: 75 in. BMI: 25.0 ALLERGIES: No Known Drug Allergy The patient's Home Medications are listed below: NONE. The source(s) of the original Home Medication information: Not obtained. The following Medications were given to the patient in the Emergency Department: Toradol [IVP] IVP 30 mg, administered: 08/28/2016 8:02:00 PM TDAP [IM] IM 0.5 mL, administered: 08/28/2016 8:07:00 PM IV NS IV Fluids bolus 0, then 999 mL/hr, administered: 08/28/2016 8:13:00 PM IV NS IV Fluids bolus 0, then 999 mL/hr, administered: 08/28/2016 9:33:00 PM The following Medications were prescribed to the patient: None.
--- NOTE | 2016-08-30 13:23 | ED DISCHARGE INSTRUCTIONS ---
Patient: EVERARDO SWEENEY General Instructions [facility] VisitID: [id number] [address] [place] [address] 36y, M Registration Date/Time: 08/28/2016 Multiple superficial abrasions to the right forearm, right wrist, right hand, right thigh, right knee, right lower leg, right ankle and right foot and left forearm, left wrist, left hand, left thigh, left knee, left lower leg, left ankle and left foot. Frostbite with partial thickness skin loss involving the right 3rd toe, right 4th toe, right 5th toe, left 3rd toe, left 4th toe and left 5th toe. Frostbite with full thickness tissue necrosis involving the right great toe, right 2nd toe, left great toe and left 2nd toe. (Electronically signed by Mariana Persaud A.R.N.P. 08/30/2016 13:22)
--- NOTE | 2016-08-30 13:23 | ED DISCHARGE INSTRUCTIONS ---
Patient: EVERARDO SWEENEY General Instructions [facility] VisitID: [id number] [address] [place] [address] 36y, M Registration Date/Time: 08/28/2016 Multiple superficial abrasions to the right forearm, right wrist, right hand, right thigh, right knee, right lower leg, right ankle and right foot and left forearm, left wrist, left hand, left thigh, left knee, left lower leg, left ankle and left foot. Frostbite with partial thickness skin loss involving the right 3rd toe, right 4th toe, right 5th toe, left 3rd toe, left 4th toe and left 5th toe. Frostbite with full thickness tissue necrosis involving the right great toe, right 2nd toe, left great toe and left 2nd toe. (Electronically signed by Mariana Persaud A.R.N.P. 08/30/2016 13:22)
--- NOTE | 2016-08-30 13:23 | ED MED RECONCILIATION SUMMARY ---
Patient: EVERARDO SWEENEY Medication Reconciliation Report [facility] VisitID: [id number] [address] [place] [address] 36y, M Registration Date/Time: 08/28/2016 Weight: 90.7 kg Height/Length: 75 in. BMI: 25.0 ALLERGIES: No Known Drug Allergy The patient's Home Medications are listed below: NONE. The source(s) of the original Home Medication information: Not obtained. The following Medications were given to the patient in the Emergency Department: Toradol [IVP] IVP 30 mg, administered: 08/28/2016 8:02:00 PM TDAP [IM] IM 0.5 mL, administered: 08/28/2016 8:07:00 PM IV NS IV Fluids bolus 0, then 999 mL/hr, administered: 08/28/2016 8:13:00 PM IV NS IV Fluids bolus 0, then 999 mL/hr, administered: 08/28/2016 9:33:00 PM The following Medications were prescribed to the patient: None.
--- NOTE | 2016-08-30 13:23 | ED MAR SUMMARY ---
..... Medication Administration Record [facility] [address] [place] [address] Patient: EVERARDO SWEENEY Visit ID: [id number] 36y, M Weight: 90.7 kg Height/Length: 75 in BMI: 25 ALLERGIES: No Known Drug Allergy Given 20:02 08/28/2016 Niya Richards R.N. Medication Administered: TORADOL [IVP], Dose: 30 mg IVP over 1 minute(s), Site: #1 right upper arm. Medication Ordered: Toradol IV 30 mg (NOW). Given 20:07 08/28/2016 Sheriff Guallpa R.N. Medication Administered: TDAP [IM], Dose: 0.5 mL IM. Medication Ordered: Tdap IM 0.5 mL (NOW, per protocol). Start 20:13 08/28/2016 Sheriff Guallpa R.N., Stop 21:15 08/28/2016 Niya Richards R.N. Medication Administered: IV NS (SALINE), Dose: IV Fluids over 45 minute(s), Rate: 999 mL/hr, Dispensed: 1000 mL bag, Site: #1 right upper arm. Medication Ordered: IV NS : initial bolus 1000 mL (1000 mL/hr), then none - (NOW). Start 21:33 08/28/2016 Sheriff Guallpa R.N., Stop 22:25 08/28/2016 Niya Richards RIrisNIris Medication Administered: IV NS (SALINE), Dose: IV Fluids over 1 minute(s), Rate: 999 mL/hr, Dispensed: 1000 mL bag, Site: #1 right upper arm. Medication Ordered: IV NS : initial bolus 1000 mL (1000 mL/hr), then none - (NOW).
--- NOTE | 2016-08-30 13:42 | NUR ---
In to see patient with Dr. Niño and Dr. Jeffrey, dressings removed to bilat feet, mostly serosanginous drainage saturating dressings. Per Drs, the frostbite is advancing, will continue to monitor, and in the interum obtan CT scan to r/o necrotzing fascitis, foreign body, as pt is febrile to 101 degrees. wounds cleansed with NS, plain gauze applied on top of wounds for easy removal, as per CT, no dressings can be in place during CT procedure. Orders received from Dr. Niño for BID Silvadene dressing changes and for feet to be elevated above heart as much as possible. Will continue to monitor closely.
--- NOTE | 2016-08-30 14:40 | NUR ---
PT WENT DOWN TO CT VIA BED. ASSISTED BY MS COTTON TO THE LOBBY VIA BED.
[2016-08-30 15:23] VITALS: BP 138/78
--- NOTE | 2016-08-30 17:01 | NUR ---
NUTRITION NOTE: Added high protein diet to current diet order to help promote healing. Pt is eating ~90% average of meals. Will continue to follow up, complete assessment/protocol.
--- NOTE | 2016-08-30 17:41 | NUR ---
PATIENT BACK FROM CT AROUND 1545, IN BED RESTING ON/OFF. SILVADENE WAS APPLIED TO THE BLE, AND COVERED WITH GAUZE AND KERLEX. PULSES PRESENT, PATIENT STATES HE HAS SENSATION, ABLE TO WIGGLE TOES SLOWLY. BLE ARE PURPLE, AND SOME DRY BLOOD PRESENT. AWARE THAT IF HE DEVELOPS ANY NUMBNESS OR LOSS OF SENSATION TO NOTIFY THE RN. GIVEN PATIENT IV DILAUDID PRN PAIN. PATIENT HAS NO OTHER COMPLAINTS. CALL LIGHT WITHIN REACH.
[2016-08-30 18:46] VITALS: BP 160/81
--- NOTE | 2016-08-30 19:34 | CONSULTATION REPORT ---
DATE OF CONSULTATION: 08/30/2016 CHIEF COMPLAINT: 1. Frostbite injury of feet HISTORY OF PRESENT ILLNESS: The patient is a 36-year-old man who 2 days previously was apparently walking in high altitude cold, having taken off in his car after he believes he heard voices and going out in the mountains. There is also some potential history of drug-related problem. He was found running through [place] and mountains with no shoes, with multiple injuries, in very cold water or frozen areas. Initially, he had sjcbv-cjecac-blfsguj feet, which have since warmed, but is about 2 days past the injury. Since then, he is noted to bullae developing and swelling in the feet. MEDICAL/SURGICAL HISTORY: Past medical history: Alcoholism and possible methamphetamine use by Dr. Jeffrey's report. He has anxiety reaction. Past surgical history: None was reported or noted by the emergency department. ALLERGIES: 1. HE HAS NO KNOWN MEDICATION ALLERGIES. SOCIAL HISTORY: He smokes a small amount. He takes occasional alcohol. There is no recent drug use reported on the chart. FAMILY HISTORY: Noncontributory. He reports no congenital diseases. REVIEW OF SYSTEMS: Obtained by Dr. Jeffrey on admission. PHYSICAL EXAMINATION: VITAL SIGNS: The patient's temperature is 98.4, it was 101.3 in the morning, his pulse was 105, respirations 16, blood pressure 130/78, O2 saturation 98%. His height is 6 feet 3 inches, weight 206. GENERAL: The patient seemed coherent and answered questions appropriately when I talked to him, though the history of his injury is still a little bit nebulous. HEENT: His ears and nose did not demonstrate obvious external injuries. CHEST: Respirations were normal. ABDOMEN: Nontender, not distended. EXTREMITIES: His upper extremities look uninjured. The lower extremity examination demonstrated that his toes were dark-colored with bullae over the toes, as well as a bunch on the forefoot. There is 1 small area of rupture with clear serous drainage and there was a large bulla on the plantar surface of the right foot. Dorsalis pedis pulses were palpable, but the toe tips were questionable in color and being a blackish- grayish color. Note that during examination he also had numerous scratches and abrasions on his lower extremities consistent with running through the wild and perhaps through [place]berry bushes. LAB/IMAGING: Laboratory tests showed initial white count of 15.8 with a repeat today of 9.1, hemoglobin and hematocrit today is 10.6 and 31.8. Toxicology appears to show a positive urine screen, but specifics are labeled as canceled from 08/30/2016. Chemistries demonstrated normal electrolytes and renal functions, glucose was elevated today [place] 157[place] [id number] [place] scan of the lower extremities was obtained after I saw him in the [facility] and the current report shows multiple fluid-filled blisters on the feet with extensive subcutaneous edema medially and laterally in his feet extending cranially toward the ankles. Osseous structures all look normal. There are no foreign bodies. IMPRESSION: 1. Frostbite injury of toes. 2. Possible acute psychosis or drug-related problems. PLAN: I conferred with Dr. Jeffrey at the bedside, as well as our wound care nurse. I recommended that we provide additional elevation to get his feet higher than his heart for the majority of the time in order to decrease edema. I also talked to Dr. Jeffrey about the possibility of hyperbaric oxygen therapy, primarily for edema reduction and possible tissue salvage. I have since talked to [facility] and she is looking into this as a possible modality. Dr. Jeffrey has conferred with the [facility] folks and he is beyond any additional tertiary therapies. They recommended basically for protective care until the tissues demarcate. The areas of the open bullae will be treated with Silvadene to help decrease the chance of bacterial invasion and we will provide additional edema control and see if we can get the feet to delineate. If, however, he develops purulent drainage then some of these bullae may need to be debrided away and unroofed.
--- NOTE | 2016-08-30 20:58 | NUR ---
pATIENT WAS REASSURED THAT HE WILL HAVE PAIN MEDS PRIOR TO CHANGING DRESSINGS ON BOTH FEET. HE CONTINUES ON IV ANTIBIOTICS.
[2016-08-30 22:49] VITALS: BP 155/76
--- NOTE | 2016-08-31 00:30 | NUR ---
Renewed dressing and applied Silvadene cream to open skin on both feet.
[2016-08-31 03:04] VITALS: BP 136/76
[2016-08-31 07:08] VITALS: BP 137/95
--- NOTE | 2016-08-31 07:47 | Progress Note ---
Subjective General Note Date: August 31, 2016 Admission Date: August 29, 2016 Hospital Day: 3 PCP: None Status: Inpatient Advanced Directive: Full Code Room: 208 Brief History: The patient is a 36-year-old white male with a previous history of psychiatric disease who presented to [facility] emergency department secondary to suspected frostbite of both feet. [facility] ER evaluation was consistent with probable frostbite both feet, auditory hallucinations. Secondary to the above, the patient was admitted by aHrdy Jeffrey M.D. for further evaluation and treatment. For other history present illness, past medical history, family history, social history, review of systems, and admission physical examination please see the patient's history and physical examination and ER visit note in the patient's medical record. Subjective: The patient states he is doing well today. Persistent pain in her feet. No other complaints at this time. Patient requests: None Medications and Allergies Medications Current Medications Sig/Mateo Start time Last Medication Dose Route Stop Time Status Admin Clarify Med Order See Dose 0830 08/31 0830 AC Insts (1) IV 08/31 0859 Silver Sulfadiazine See Dose BID 08/30 1400 AC 08/30 Insts (2) TOP 2054 Vancomycin HCl 1,250 MG Q8H 08/30 0900 AC 08/31 Sodium Chloride 250 ML IV 0114 Piperacillin/ 50 ML Q6HR 08/30 0200 AC 08/31 Tazobactam/Dextrose IV 0559 Vancomycin HCl See Dose .[PER PHARMACY] 08/30 011 Insts (3) IV Enoxaparin Sodium 40 MG DAILY 08/29 0900 AC 08/30 SC 0844 Pantoprazole Sodium 40 MG DAILY@0600 08/29 0600 08/31 Sesquihydrate PO 0559 Acetaminophen 650 MG Q6H PRN 08/29 011 AC 08/31 PO 0725 Docusate Sodium 250 MG BID PRN 08/29 0115 AC 08/30 PO 0012 Hydromorphone HCl 1 MG Q1H PRN 08/29 011 AC 08/31 IV 0606 Ondansetron HCl 4 MG Q6H PRN 08/29 011 AC IV Sodium Chloride 1,000 ML ASDIRECTED 08/29 0115 AC 08/31 IV 0743 Dose Instructions: (1)Clarify Med Order: VANCOMYCIN TROUGH (2)Silver Sulfadiazine: TO WOUNDS ON BOTH FEET (3)Vancomycin HCl: DOSING PER PHARMACY Allergies Coded Allergies: NKA (08/29/16) Physical Exam Vital Signs / I&Os Vital Signs Date Time Temp Pulse Resp B/P Pulse O2 O2 Flow FiO2 Ox Delivery Rate 08/31 0708 100.4 98 21 137/95 95 Room Air 08/31 0304 98.8 89 16 136/76 99 Room Air 08/30 2249 99.3 108 16 155/76 97 Room Air 08/30 2101 Room Air 08/30 1846 98.1 118 16 160/81 98 Room Air 08/30 1523 98.4 105 16 138/78 98 08/30 1335 98.6 08/30 1105 101.3 102 18 142/83 95 Room Air 0.0 08/30 0835 Room Air 0.0 I&O 08/31 0000 08/30 1600 08/30 0800 Intake Total 1850 3205 Output Total 1350 3650 3075 Balance -1350 -1800 130 General Appearance Alert, Oriented X3, Cooperative, No acute distress Lungs Clear to auscultation, Normal air movement Cardiovascular Regular rate and rhythm, Normal S1 and S2, No murmurs, gallops, rubs Abdomen Normal bowel sounds, Soft, No tenderness Extremities No cyanosis, No clubbing, Bilateral edema feet. Persistent cyanotic areas distal left foot/right foot multiple bulla present. Erythema present. No purulent drainage noted. Neurological Grossly normal Psych/Mental Status Mental status normal, Mood normal Assessment and Plan Problem List 1. Frostbite of both feet Plan -Persistent edema, erythema, cyanotic areas. -Multiple bulla present. -No clear evidence of infection other mild erythema -Monitor 2. Illicit drug use Status Chronic Onset Date Unknown Plan -Patient with history of illicit drug use-methamphetamine -Long discussion undertaken with the family and patient today regarding drug rehabilitation posthospitalization -Monitor 3. Hyponatremia Status Acute Onset Date Unknown Plan -Resolved 4. Elevated LFTs Status Acute Onset Date Unknown Plan -Improved -AST 185 (218-08/30) -ALT 96 (94-08/30) -Bilirubin, alkaline phosphatase within normal limits -Monitor 5. Cellulitis Status Acute Onset Date Unknown Plan -Patient with erythema bilateral feet. No premature age -Continue vancomycin/Zosyn -Monitor -Persistent fever, leukocytosis improved 6. Hyperglycemia Status Acute Onset Date Unknown Plan -Patient with mild hyperglycemia -Hemoglobin A1c normal at 5.7 -Monitor 7. Rhabdomyolysis Status Acute Onset Date Unknown Plan -Patient with findings of rhabdomyolysis. -CPK improved -Continue IV fluids -Monitor Current status: Fair, improved Anticipated discharge date: Anticipated discharge 4-5 days to [facility] facility Anticipated discharge placement: [facility] facility Patient care time: Time spent in chart review, patient interview, physical exam, CPOE, and care documentation: 45 minutes Visit to patient today: 2 Complexity of care: Moderate E&M Codes Rounding: Inpt-Moderate/[id number]
--- NOTE | 2016-08-31 07:47 | Progress Note ---
Subjective General Note Date: August 31, 2016 Admission Date: August 29, 2016 Hospital Day: 3 PCP: None Status: Inpatient Advanced Directive: Full Code Room: 208 Brief History: The patient is a 36-year-old white male with a previous history of psychiatric disease who presented to [facility] emergency department secondary to suspected frostbite of both feet. [facility] ER evaluation was consistent with probable frostbite both feet, auditory hallucinations. Secondary to the above, the patient was admitted by Hardy Jeffrey M.D. for further evaluation and treatment. For other history present illness, past medical history, family history, social history, review of systems, and admission physical examination please see the patient's history and physical examination and ER visit note in the patient's medical record. Subjective: The patient states he is doing well today. Persistent pain in her feet. No other complaints at this time. Patient requests: None Medications and Allergies Medications Current Medications Sig/Mateo Start time Last Medication Dose Route Stop Time Status Admin Clarify Med Order See Dose 0830 08/31 0830 AC Insts (1) IV 08/31 0859 Silver Sulfadiazine See Dose BID 08/30 1400 AC 08/30 Insts (2) TOP 2054 Vancomycin HCl 1,250 MG Q8H 08/30 0900 AC 08/31 Sodium Chloride 250 ML IV 0114 Piperacillin/ 50 ML Q6HR 08/30 0200 AC 08/31 Tazobactam/Dextrose IV 0559 Vancomycin HCl See Dose .[PER PHARMACY] 08/30 011 Insts (3) IV Enoxaparin Sodium 40 MG DAILY 08/29 0900 AC 08/30 SC 0844 Pantoprazole Sodium 40 MG DAILY@0600 08/29 0600 08/31 Sesquihydrate PO 0559 Acetaminophen 650 MG Q6H PRN 08/29 011 AC 08/31 PO 0725 Docusate Sodium 250 MG BID PRN 08/29 0115 AC 08/30 PO 0012 Hydromorphone HCl 1 MG Q1H PRN 08/29 011 AC 08/31 IV 0606 Ondansetron HCl 4 MG Q6H PRN 08/29 011 AC IV Sodium Chloride 1,000 ML ASDIRECTED 08/29 0115 AC 08/31 IV 0743 Dose Instructions: (1)Clarify Med Order: VANCOMYCIN TROUGH (2)Silver Sulfadiazine: TO WOUNDS ON BOTH FEET (3)Vancomycin HCl: DOSING PER PHARMACY Allergies Coded Allergies: NKA (08/29/16) Physical Exam Vital Signs / I&Os Vital Signs Date Time Temp Pulse Resp B/P Pulse O2 O2 Flow FiO2 Ox Delivery Rate 08/31 0708 100.4 98 21 137/95 95 Room Air 08/31 0304 98.8 89 16 136/76 99 Room Air 08/30 2249 99.3 108 16 155/76 97 Room Air 08/30 2101 Room Air 08/30 1846 98.1 118 16 160/81 98 Room Air 08/30 1523 98.4 105 16 138/78 98 08/30 1335 98.6 08/30 1105 101.3 102 18 142/83 95 Room Air 0.0 08/30 0835 Room Air 0.0 I&O 08/31 0000 08/30 1600 08/30 0800 Intake Total 1850 3205 Output Total 1350 3650 3075 Balance -1350 -1800 130 General Appearance Alert, Oriented X3, Cooperative, No acute distress Lungs Clear to auscultation, Normal air movement Cardiovascular Regular rate and rhythm, Normal S1 and S2, No murmurs, gallops, rubs Abdomen Normal bowel sounds, Soft, No tenderness Extremities No cyanosis, No clubbing, Bilateral edema feet. Persistent cyanotic areas distal left foot/right foot multiple bulla present. Erythema present. No purulent drainage noted. Neurological Grossly normal Psych/Mental Status Mental status normal, Mood normal Assessment and Plan Problem List 1. Frostbite of both feet Plan -Persistent edema, erythema, cyanotic areas. -Multiple bulla present. -No clear evidence of infection other mild erythema -Monitor 2. Illicit drug use Status Chronic Onset Date Unknown Plan -Patient with history of illicit drug use-methamphetamine -Long discussion undertaken with the family and patient today regarding drug rehabilitation posthospitalization -Monitor 3. Hyponatremia Status Acute Onset Date Unknown Plan -Resolved 4. Elevated LFTs Status Acute Onset Date Unknown Plan -Improved -AST 185 (218-08/30) -ALT 96 (94-08/30) -Bilirubin, alkaline phosphatase within normal limits -Monitor 5. Cellulitis Status Acute Onset Date Unknown Plan -Patient with erythema bilateral feet. No premature age -Continue vancomycin/Zosyn -Monitor -Persistent fever, leukocytosis improved 6. Hyperglycemia Status Acute Onset Date Unknown Plan -Patient with mild hyperglycemia -Hemoglobin A1c normal at 5.7 -Monitor 7. Rhabdomyolysis Status Acute Onset Date Unknown Plan -Patient with findings of rhabdomyolysis. -CPK improved -Continue IV fluids -Monitor Current status: Fair, improved Anticipated discharge date: Anticipated discharge 4-5 days to half-way facility Anticipated discharge placement: group home facility Patient care time: Time spent in chart review, patient interview, physical exam, CPOE, and care documentation: 45 minutes Visit to patient today: 2 Complexity of care: Moderate E&M Codes Rounding: Inpt-Moderate/[id number]
--- NOTE | 2016-08-31 10:16 | NUR ---
NUTRITION ASSESSMENT AND FOLLOW UP: S: Pt admitted with dx/o frostbite bilateral feet. Suggested high protein diet which has already been added to diet order. PO intake since admit has been average of ~90% of meals and pt requests snacks as well. O: Diet Rx: General High Protein NKFA Wts: 90.5 kg Ht: 75" IBW: 80-90 kg BMI: 25 Est Kcals: ~2384-9677 kcals per day Est Fluids: ~2550 mls per day Est Pro: ~95-130 g per day Meds Incl: enoxaparin Na+, vanco, protonix, silver, IVFs, see eMar for complete list/details. Labs Incl: (08/31) glucose 151, BUN 7, Creat 0.9, Na+ 137, K+ 4.0,, Ca+ 8.3, total pro 6.0, albumin 2.5, ast 185, alt 96, HCT 32.3, HGB 10.9, MCV 88, MCH 30 Skin: Lance Score: 19 wound/frostbite both feet Accuchecks: 95-198 A: Pts appetite appears intact, good to see 2/2 increased healing needs. Question accuchecks as they appear elevated? No hx/o of DM noted. Rec check HgbA1c. High protein diet in place to help promote adequate intake for anabolism, suggested high protein supplement with meals (muscle milk). Diet/nutrition education today with list for protein foods. Rec multivitamin with minerals daily (with Fe and Fa) to help support macronutrient needs and also 2/2 liver enzymes? hx/o ETOH noted in addition to illicit drug use. Spoke with wound nurse, pts lance score rolando hui to be placed today 2/2 the nature of pts condition cant get out of bed...Pt appears to be at mod to high nutritional risk. RD to follow up and monitor nutrition indices prn/protocol. P: 1. Multivitamin with Mineral ( vitamin) po daily 2. Continue high protein diet and add muscle milk 3. consider A1c draw
--- NOTE | 2016-08-31 10:32 | NUR ---
Pharmacy To Dose Vancomycin Dx-frostbite/cellulitis PMH-Drug use Labs- Scr 0.9 CRCl >120 ml/min Temp 100.4 Cx NG WBC 10.5 Other Abx- Zosyn 3.375 GM IV q6h Vanco Troughs- 8.4 mcg/ml @0840 on 08/31/16 A/P-VT of 8.4 mcg/ml is below goal range. Will increase to 1000mg IV q6h for est SS trough of ~11 mcg/ml. VT ordered for 0730 on 09/01/16. Pharmacy will cont to follow.
[2016-08-31 10:43] VITALS: BP 129/77
--- NOTE | 2016-08-31 10:54 | NUR ---
In to see patient today with Dr. Jeffrey for dressing change, old dressings removed, saturated in areas with serosanginous drainage. Blisters have become more pronounced to both feet, slightly larger than yesterday and slight more erythema to bilat feet as affirmed by Dr. Jeffrey. Feet are still edematous and areas of weeping are present. Open areas cleansed with NS, Silvadene applied, covered with gauze and ABD pad, secured with kerlix. BIlat LE elevated on pillows. Pt agreeable to plan of care, continued monitoring of feet, BID dressing changes, pain control. Will continue to monitor.
--- NOTE | 2016-08-31 12:38 | NUR ---
PT SLEEPING AT THIS TIME.
[2016-08-31 14:48] VITALS: BP 128/85
[2016-08-31 18:02] VITALS: BP 127/74
--- NOTE | 2016-08-31 18:41 | NUR ---
PT IS DIAPHORETIC, NO C/O PAIN. PROVIDED ACETAMINOPHEN FOR ELEVATED TEMP AND CHILLS. WCTM.
--- NOTE | 2016-08-31 21:25 | NUR ---
CHANGED DRESSING ON BOTH FEET PER DIRECTIONS. R FOOT HAS LARGE BLISTER ON PAD OF FOOT THAT IS NOT DRAINING. PT IS ABLE TO WIGGLE TOES ON L FOOT BUT NOT ON RIGHT. PAIN WAS 4/10 DURING PROCEDURE. PROVIDED 1MG OF DILAUDID PRIOR TO. FEET ARE ELEVATED ON PILLOW.
[2016-08-31 22:10] VITALS: BP 137/72
[2016-09-01 03:10] VITALS: BP 145/71
--- NOTE | 2016-09-01 05:43 | NUR ---
Pt slept well between care. Medicated for pain of 7-10/10 three times. Pt used urinal at bedside. No other complaints at this time. WCTM.
[2016-09-01 07:15] VITALS: BP 125/74
--- NOTE | 2016-09-01 10:06 | NUR ---
NUTRITION FOLLOW UP NOTE: Pt eating ~100% of high protein diet, drinking supplemental as well per report. Mom also brings in shakes for him. Mom states that he does look like he that he has lost a lot of weight. Wts up 5 kg since admit? Will continue to monitor for trends. RD to follow up prn/protocol.
--- NOTE | 2016-09-01 11:11 | NUR ---
NRB MASK PLACED ON PT PER MD ORDER, FOR THE PURPOSE OF HYPEROXYGENATING TISSUE TO FEET.
--- NOTE | 2016-09-01 11:21 | NUR ---
In to see patient for linen change, place WAFFLE mattress and dressing change. Old dressings removed, saturated with serosanginous fluid in certain areas. To the left foot medial blister near the heel, has turned color to a yellow/orangish hue, with a corresponding opening that is draining the fluid. Rest of the blisters are dark purple/reddish hue, open areas have black wound bases. To the right foot, blisters are also dark in color, with some areas of the yellowish hue to the distal portion of foot as well. pt states has some sensation, +pain and burning. There is more erythema to the lateral aspect of the feet, R>L. Dr. Jeffrey and Dr. Hinton both came into the room to assess feet, at different times, so did x2 dressing changes. Wounds cleansed with NS, then Silvadene applied to all open areas, topped with gauze, ABD pad and secured with Kerlix, pt tolerated procedure well with premedication, Dr. Hinton states pt to go to OR tomorrow for debridement, will continue to monitor.
--- NOTE | 2016-09-01 14:05 | NUR ---
NUTRITION ADDENDUM: Pt A1c 5.7, noted wnl.
[2016-09-01 14:35] VITALS: BP 124/83
--- NOTE | 2016-09-01 14:41 | NUR ---
PRUNE PASTE GIVEN TO PT.
--- NOTE | 2016-09-01 14:59 | NUR ---
PT HAD 2ND BM.
--- NOTE | 2016-09-01 17:30 | Progress Note ---
Subjective General Note Date: August 31, 2016 Admission Date: August 29, 2016 Hospital Day: 3 PCP: None Status: Inpatient Advanced Directive: Full Code Room: 208 Brief History: The patient is a 36-year-old white male with a previous history of psychiatric disease who presented to [facility] emergency department secondary to suspected frostbite of both feet. [facility] ER evaluation was consistent with probable frostbite both feet, auditory hallucinations. Secondary to the above, the patient was admitted by Hardy Jeffrey M.D. for further evaluation and treatment. For other history present illness, past medical history, family history, social history, review of systems, and admission physical examination please see the patient's history and physical examination and ER visit note in the patient's medical record. Subjective: The patient states he is doing well today. Persistent pain in her feet while on oral/IV narcotics. No other complaints at this time. Patient requests: None Medications and Allergies Medications Current Medications Sig/Mateo Start time Last Medication Dose Route Stop Time Status Admin Clarify Med Order See Dose 0730 09/02 0730 AC Insts (1) IV 09/02 0759 Celecoxib 200 MG BID 09/01 1100 AC 09/01 PO 1124 Diphenhydramine HCl 25 MG Q6H PRN 09/01 1100 AC 09/01 PO 1124 Oxycodone/ See Dose Q4H PRN 08/31 1415 AC 09/01 Acetaminophen Insts (2) PO 1309 Vancomycin HCl/ 200 ML Q6H 08/31 1400 AC 09/01 Dextrose IV 1308 Multivit/ 1 TAB DAILY 08/31 1200 AC 09/01 Folic Acid/Iron PO 0840 Silver Sulfadiazine See Dose BID 08/30 1400 AC 09/01 Insts (3) TOP 1012 Piperacillin/ 50 ML Q6HR 08/30 0200 AC 09/01 Tazobactam/Dextrose IV 1124 Vancomycin HCl See Dose .[PER PHARMACY] 08/30 0115 AC Insts (4) IV Enoxaparin Sodium 40 MG DAILY 08/29 0900 AC 09/01 SC 0840 Pantoprazole Sodium 40 MG DAILY@0600 08/29 0600 AC 09/01 Sesquihydrate PO 0601 Acetaminophen 650 MG Q6H PRN 08/29 0115 AC 09/01 PO 0601 Docusate Sodium 250 MG BID PRN 08/29 0115 AC 09/01 PO 1440 Hydromorphone HCl 1 MG Q1H PRN 08/29 114 AC 09/01 IV 1050 Ondansetron HCl 4 MG Q6H PRN 08/29 114 IV Sodium Chloride 1,000 ML ASDIRECTED 08/29 114 09/01 IV 1301 Dose Instructions: (1)Clarify Med Order: VANCOMYCIN TROUGH (2)Oxycodone/Acetaminophen: 1 - 2 TABLETS (3)Silver Sulfadiazine: TO WOUNDS ON BOTH FEET (4)Vancomycin HCl: DOSING PER PHARMACY Allergies Coded Allergies: NKA (08/29/16) Physical Exam Vital Signs / I&Os Vital Signs Date Time Temp Pulse Resp B/P Pulse O2 O2 Flow FiO2 Ox Delivery Rate 09/01 1435 98.4 91 20 124/83 98 Room Air 09/01 1107 98.4 20 95 Room Air 0.0 09/01 0715 98.4 104 18 125/74 97 Room Air 0.0 09/01 0310 100.4 113 19 145/71 98 Room Air 08/31 2345 Room Air 08/31 2210 99.1 98 19 137/72 97 Room Air 08/31 1802 98.8 111 19 127/74 96 Room Air 08/31 1705 101.1 I&O 09/01 0000 08/31 1600 08/31 0800 Intake Total 2265 720 3915 Output Total 2817 1700 1925 Balance -552 -980 1989 General Appearance Alert, Oriented X3, Cooperative, No acute distress Lungs Clear to auscultation, Normal air movement Cardiovascular Regular rate and rhythm, Normal S1 and S2 Abdomen Normal bowel sounds, Soft, No tenderness Extremities No cyanosis, No clubbing, bilateral pedal edema with massive bullae present. Erythema noted. Persistent cyanosis. Neurological Cranial nerves intact, No lateralizing signs Psych/Mental Status Mental status normal, Mood normal LAB Results Laboratory Tests 09/01 09/01 08/31 08/31 0730 0550 2350 1750 Chemistry Plasma Sodium (136 - 145 mmol/L) 138 Plasma Potassium (3.5 - 5.1 mmol/L) 3.9 Plasma Chloride (98 - 107 mmol/L) 103 CO2 (Enzymatic) (21 - 32 mmol/L) 27 BUN (7 - 18 mg/dL) 7 Creatinine (0.6 - 1.3 mg/dL) 0.8 Est GFR ( Amer) (mL/min) >60 Est GFR (Non-Af Amer) (mL/min) >60 Glucose (70 - 110 mg/dL) 118 Plasma Calcium (8.5 - 10.1 mg/dL) 8.3 Total Bilirubin (0.0 - 1.0 mg/dL) 0.3 AST (15 - 37 U/L) 117 ALT (12 - 78 U/L) 86 Alkaline Phosphatase (46 - 116 U/L) 60 Total Protein (6.4 - 8.2 g/dL) 6.0 Albumin (3.3 - 5.0 g/dL) 2.3 Hematology WBC (4.5 - 11.5 K/uL) 10.7 RBC (4.50 - 5.90 M/uL) 3.47 Hgb (13.5 - 17.5 gm/dL) 10.3 Cancelled Cancelled Cancelled Hct (41.0 - 53.0 %) 30.8 Cancelled Cancelled Cancelled MCV (80 - 100 fL) 89 MCH (26 - 34 pg) 30 RDW (11.6 - 14.8 %) 13.8 Neut % (Auto) (50 - 75 %) 71 Lymph % (Auto) (25 - 40 %) 14 Crook % (Auto) (3 - 14 %) 11 Eos % (Auto) (0 - 4 %) 3 Baso % (Auto) (0 - 2 %) 0 Band Neutrophils % (0 - 8 %) 1 Metamyelocytes % (0 - 1 %) 0 Myelocytes (0 - 1 %) 0 Other Cell Type 0 Plt Count, EDTA (150 - 400 K/uL) 174 PUBS MCHC (31 - 37 g/dL) 33 Toxicology Vancomycin Trough (10.0 - 20.0 ug/mL) 10.8 Assessment and Plan Problem List 1. Frostbite of both feet Plan -Persistent edema, erythema, cyanosis/ecchymosis feet. Extremely large bulla present bilaterally. -Status unchanged -Questionable infectious process with erythema -Surgery will plan debridement of /necrotic tissue in a.m. -Dr. Hinton evaluated the patient today for surgical intervention 2. Illicit drug use Status Chronic Onset Date Unknown Plan -Stable -No signs of drug withdrawal -Encourage patient to enroll in drug treatment post hospitalization 3. Hyponatremia Status Acute Onset Date Unknown Plan -Resolved -Sodium 138 today 4. Elevated LFTs Status Acute Onset Date Unknown Plan -Liver function tests continue to improve -AST 117, ALT 86, alkaline phosphatase 60, bilirubin 0.3 -Monitor 5. Cellulitis Status Acute Onset Date Unknown Plan -Persistent erythema feet -WBC within normal limits -Persistent intermittent fevers -Plan wound debridement in a.m. with Dr. Hinton -Continue present antimicrobial therapy 6. Rhabdomyolysis Status Acute Onset Date Unknown Plan -Rhabdomyolysis continues to improve -CPK 3410 (6313-08/31) -Continue IV fluid -Monitor 7. Hyperglycemia Status Acute Onset Date Unknown Plan -Improved -Fasting blood sugar 118 today -Hemoglobin A1c within normal limits at 5.7 -Monitor Current status: Fair, unstable Anticipated discharge date: Anticipated discharge in 3-4 days Anticipated discharge placement: halfway facility Patient care time: Time spent in chart review, patient interview, physical exam, CPOE, and care documentation: 25 minutes Visit to patient today: 1 Complexity of care: Moderate E&M Codes Rounding: Inpt-Moderate/[id number]
--- NOTE | 2016-09-01 17:30 | NUR ---
AWAKE AND ALERT, WATCHING TV. C/O PAIN 5/10 ON BILATERAL FEET. 2 PERCOCET EFFECTIVE. DRESSINGS TO BILATERAL FEET HAS MODERATE AMOUNT OF SEROUS DRAINAGE. DRESSING CHANGE TO BE DONE TONIGHT AT 2100. LS DIMINISHED AND ENCOURAGED PT TO CDB. OTHERWISE, BENIGN ASSESSMENT.
[2016-09-01 18:05] VITALS: BP 132/78
[2016-09-01 22:49] VITALS: BP 126/72
[2016-09-02] VITALS (10 sets, daily range): BP systolic 113–139; BP diastolic 70–88
--- NOTE | 2016-09-02 06:05 | NUR ---
PT SLEPT OFF AND ON DURING THE NIGHT. DRESSING ON FEET CHANGED AT 2100. MEDICATED FOR PAIN SEVERAL TIMES. PT HAD VERY LARGE FORMED BM IN MORNING, ABLE TO SCOOT OVER TO BSC WITHOUT PUTTING WEIGHT ON HIS FEET. VSS ON ROOM AIR. NPO SINCE MIDNIGHT. NEW ORDER FOR ARGINAID BID ENTERED BY DR. FLORES.
--- NOTE | 2016-09-02 08:13 | Progress Note ---
Subjective General Note Date: September 02, 2016 Admission Date: August 29, 2016 Hospital Day: 5 PCP: None Status: Inpatient Advanced Directive: Full Code Room: 208 Brief History: The patient is a 36-year-old white male with a previous history of psychiatric disease who presented to [facility] emergency department secondary to suspected frostbite of both feet. [facility] ER evaluation was consistent with probable frostbite both feet, auditory hallucinations. Secondary to the above, the patient was admitted by Hardy Jeffrey M.D. for further evaluation and treatment. For other history present illness, past medical history, family history, social history, review of systems, and admission physical examination please see the patient's history and physical examination and ER visit note in the patient's medical record. Subjective: The patient states he is doing well. Persistent foot pain but stable. No other specific complaints. Patient requests: None Medications and Allergies Medications Current Medications Sig/Mateo Start time Last Medication Dose Route Stop Time Status Admin Bacitracin See Dose DAILY 09/03 09 AC Insts (1) TOP Meperidine HCl See Dose Q1H PRN 09/02 1115 AC 09/02 Insts (2) IV 1637 Celecoxib 200 MG BID 09/01 1100 AC 09/02 PO 1200 Diphenhydramine HCl 25 MG Q6H PRN 09/01 1100 AC 09/01 PO 1124 Oxycodone/ See Dose Q4H PRN 08/31 1415 AC 09/02 Acetaminophen Insts (3) PO 0224 Vancomycin HCl/ 200 ML Q6H 08/31 1400 AC 09/02 Dextrose IV 1331 Multivit/ 1 TAB DAILY 08/31 1200 AC 09/02 Folic Acid/Iron PO 1200 Piperacillin/ 50 ML Q6HR 08/30 0200 AC 09/02 Tazobactam/Dextrose IV 1758 Vancomycin HCl See Dose .[PER PHARMACY] 08/30 0115 AC Insts (4) IV Enoxaparin Sodium 40 MG DAILY 08/29 09 AC 09/02 SC 1200 Pantoprazole Sodium 40 MG DAILY@0600 08/29 0600 AC 09/01 Sesquihydrate PO 0601 Acetaminophen 650 MG Q6H PRN 08/29 0115 AC 09/01 PO 0601 Docusate Sodium 250 MG BID PRN 08/29 0115 AC 09/01 PO 1440 Ondansetron HCl 4 MG Q6H PRN 08/29 114 IV Sodium Chloride 1,000 ML ASDIRECTED 08/29 011 AC 09/02 IV 1720 Dose Instructions: (1)Bacitracin: APPLY TO OPEN AREAS (2)Meperidine HCl: 12.5 - 25 MG (3)Oxycodone/Acetaminophen: 1 - 2 TABLETS (4)Vancomycin HCl: DOSING PER PHARMACY Allergies Coded Allergies: NKA (08/29/16) Physical Exam Vital Signs / I&Os Vital Signs Date Time Temp Pulse Resp B/P Pulse O2 O2 Flow FiO2 Ox Delivery Rate 09/02 0656 99.0 94 19 113/70 95 Room Air 09/02 0257 98.8 82 17 126/79 98 Room Air 09/01 2249 99.1 110 18 126/72 98 Room Air 09/01 2014 Room Air 09/01 1805 99.1 99 20 132/78 98 Room Air 09/01 1435 98.4 91 20 124/83 98 Room Air 09/01 1107 98.4 20 95 Room Air 0.0 I&O 09/02 0000 09/01 1600 09/01 0800 Intake Total 1812 1400 3908 Output Total 450 2200 1300 Balance 1362 -800 2608 General Appearance Alert, Oriented X3, Cooperative, No acute distress Lungs Clear to auscultation, Normal air movement Cardiovascular Regular rate and rhythm, Normal S1 and S2 Abdomen Normal bowel sounds, Soft, No tenderness Extremities No cyanosis, No clubbing, persistent erythema, edema, cyanosis/ ecchymosis feet. Persistent blisters. Neurological Cranial nerves intact, No lateralizing signs Psych/Mental Status Mental status normal, Mood normal LAB Results Laboratory Tests 09/02 0730 Chemistry Plasma Sodium Pending Plasma Potassium Pending Plasma Chloride Pending CO2 (Enzymatic) Pending BUN Pending Creatinine Pending Est GFR ( Amer) Pending Est GFR (Non-Af Amer) Pending Glucose Pending Plasma Calcium Pending Creatine Kinase Pending Toxicology Vancomycin Trough Pending Assessment and Plan Problem List 1. Frostbite of both feet Plan -Status unchanged -Plan debridement of necrotic tissue/bulla today -Follow up surgery -Continue wound care 2. Illicit drug use Status Chronic Onset Date Unknown Plan -Stable -Encourage enrollment in drug treatment post hospitalization 3. Elevated LFTs Status Acute Onset Date Unknown Plan -LFTs continue to improve -Recheck in a.m. 4. Cellulitis Status Acute Onset Date Unknown Plan -Patient remains on antimicrobial therapy -Vancomycin and Zosyn -Bilateral foot debridement today we'll assess for infectious process at that time per surgery -WBC within normal limits -Temperature improved, afebrile over the past 24 hours 5. Rhabdomyolysis Status Acute Onset Date Unknown Plan -CPK continues to improve -IV fluid therapy -Monitor 6. Hyperglycemia Status Acute Onset Date Unknown Plan -Mild -Hemoglobin A1c within normal limits -Monitor 7. Hyponatremia Status Acute Onset Date Unknown Plan -Resolved Current status: Fair, improved Anticipated discharge date: Anticipated discharge in 2-3 days Anticipated discharge placement: retirement facility Patient care time: Time spent in chart review, patient interview, physical exam, CPOE, and care documentation: 25 minutes Visit to patient today: 1 Complexity of care: Moderate E&M Codes Rounding: Inpt-Moderate/[id number]
--- NOTE | 2016-09-02 10:01 | NUR ---
PATIENT WENT TO OR FOR DEBRIDEMENT IN BED. CONSENT SIGNED.
--- NOTE | 2016-09-02 10:38 | NUR ---
Vancomycin dosing per pharmacy Trough 12.8 - in target range Continue current dosing Vancomycin 1 gm IVPB q6h.
--- NOTE | 2016-09-02 11:33 | NUR ---
REC'D FROM OR; SPONT RESP. LYING ON HIS BACK; BEGINS TO ROUSE; LMA DC'D BY ANESTHESIA. PT SLEEPING AND INSTRUCTED TO DB AND KEEP O2 MASK ON- CO-OP.
--- NOTE | 2016-09-02 11:53 | NUR ---
PATIENT BACK TO FLOOR FROM PACU AT 1150. STATES PAIN AT BILATERAL FEET 6/10. MEDICATED FOR PAIN. A AND O X 4. TOES BLUE AND ABLE TO WIGGLE TOES SLIGHTLY. MOM ATTENDING IN ROOM.
--- NOTE | 2016-09-02 18:25 | NUR ---
PT IS A&OX3, LS CTA AND BT ACTIVE. C/O PAIN AT 7/10 IN BILATERAL FEET, PAIN MEDS GIVEN, PAIN LVL IS CURRENTLY A /. NO NASUEA. BOTH FEET ARE WRAPPED AND DRESSINGS ARE C/D/I. LEFT AC IV CAME OUT. MOTEHR AT BEDSIDE. RESTING W/ CALL LIGHT IN REACH.
--- NOTE | 2016-09-03 00:08 | NUR ---
BILAT. FEET ELEVATED WITH PILLOW, DIMINISHED SENSATION BILAT, PT. STATES SENSATION UNCHANGED. ABLE TO WIGGLE TOES. ALERT, ORIENTED, COOPERATIVE. IV ANTIBIOTICS INFUSING WITHOUT PROBLEMS. WCTM. CALL LIGHT WITHIN REACH.
[2016-09-03 02:39] VITALS: BP 131/81
[2016-09-03 06:52] VITALS: BP 115/74
--- NOTE | 2016-09-03 08:16 | NUR ---
PATIENT ON BEDREST. ABLE TO MOVE SELF AROUND IN BED. WAFFLE IN PLACE. DRSGS CHANGED TO BLE'S PER MDO'S. SEE SHIFT ASSESSMENT FOR FURTHER DETAILS.
--- NOTE | 2016-09-03 09:10 | OPERATIVE REPORT ---
DATE OF SURGERY: 09/02/2016 SURGEON: Efren Hinton III, MD DEBARKER OPERATOR: None. PREOPERATIVE DIAGNOSIS: 1. Frostbite, bilateral feet. POSTOPERATIVE DIAGNOSIS: 1. Frostbite, bilateral feet. PROCEDURE PERFORMED: Debridement, excision bullae, bilateral feet. ANESTHESIA: General endotracheal. ESTIMATED BLOOD LOSS: None. FLUIDS REQUIRED: Approximately 400 mL of lactated Ringer's. SPECIMENS SENT TO LABORATORY: None. INDICATIONS: The patient is a 36-year-old male who was brought to [facility] after he was found wandering around in a T-shirt and boxer shorts in the [place]. Apparently, he had been on methamphetamine. His feet were consistent with frostbite. He was admitted to [facility] and [facility] were asked to evaluate the patient. Once stabilized, it was decided to take the patient to surgery and remove the bullae, some of which were hemorrhagic, to better evaluate the underlying dermis. SURGICAL FINDINGS: The patient had large bullae on the dorsum and on the plantar surface of his feet bilaterally. There were quite tense. Some aspects appeared to be hemorrhagic. The underlying tissue appeared grossly viable. SURGICAL TECHNIQUE: The patient was brought to the operating room and placed in the dorsal supine position, where he underwent general endotracheal anesthesia by the anesthesiology department. After proper anesthesia had taken effect, the patient 's bilateral feet were prepped using Betadine and draped in a sterile fashion. The large bullae in question were excised using an 11 blade, irrigating as we went along with normal saline to create our planes. Once the bullae were removed on the anterior lateral partially superior aspect of the dorsum of the feet and plantar surface of the feet bilaterally, smaller bullae over the toes, which were grossly hemorrhagic, were excised as well and irrigated. Bacitracin and Neosporin impregnated Xeroform gauze was placed over the wounds and the patient was wrapped with Kerlix with 2 x 2 sponges between the toes. The patient tolerated the procedure well and was transferred to the recovery room in stable condition. There were no intraoperative or anesthetic complications.
--- NOTE | 2016-09-03 09:10 | OPERATIVE REPORT ---
DATE OF SURGERY: 09/02/2016 SURGEON: Efren Hinton III, MD BACKING IN MACHINE TENDER: None. PREOPERATIVE DIAGNOSIS: 1. Frostbite, bilateral feet. POSTOPERATIVE DIAGNOSIS: 1. Frostbite, bilateral feet. PROCEDURE PERFORMED: Debridement, excision bullae, bilateral feet. ANESTHESIA: General endotracheal. ESTIMATED BLOOD LOSS: None. FLUIDS REQUIRED: Approximately 400 mL of lactated Ringer's. SPECIMENS SENT TO LABORATORY: None. INDICATIONS: The patient is a 36-year-old male who was brought to [facility] after he was found wandering around in a [place]-shirt [place]. Apparently, he had been on methamphetamine. His feet were consistent with frostbite. He was admitted to [facility] and [facility] were asked to evaluate the patient. Once stabilized, it was decided to take the patient to surgery and remove the bullae, some of which were hemorrhagic, to better evaluate the underlying dermis. SURGICAL FINDINGS: The patient had large bullae on the dorsum and on the plantar surface of his feet bilaterally. There were quite tense. Some aspects appeared to be hemorrhagic. The underlying tissue appeared grossly viable. SURGICAL TECHNIQUE: The patient was brought to the operating room and placed in the dorsal supine position, where he underwent general endotracheal anesthesia by the anesthesiology department. After proper anesthesia had taken effect, the patient 's bilateral feet were prepped using Betadine and draped in a sterile fashion. The large bullae in question were excised using an 11 blade, irrigating as we went along with normal saline to create our planes. Once the bullae were removed on the anterior lateral partially superior aspect of the dorsum of the feet and plantar surface of the feet bilaterally, smaller bullae over the toes, which were grossly hemorrhagic, were excised as well and irrigated. Bacitracin and Neosporin impregnated Xeroform gauze was placed over the wounds and the patient was wrapped with Kerlix with 2 x 2 sponges between the toes. The patient tolerated the procedure well and was transferred to the recovery room in stable condition. There were no intraoperative or anesthetic complications.
[2016-09-03 11:02] VITALS: BP 123/76
--- NOTE | 2016-09-03 11:34 | NUR ---
PATIENT'S MOM WHO IS IN TOWN FROM [place] LEFT THIS AM TO GO BACK TO [place] AND WILL BE BACK NEXT WEEK. STATES SHE WOULD LIKE TO BE NOTIFIED OF ANY CHANGES IN CONDITION, ESPECIALLY IF PATIENT TRANSFERS TO ANOTHER FACILITY.
--- NOTE | 2016-09-03 13:17 | Progress Note ---
Subjective General Pt. is feeling better. Thinking is OK. Feet are painful. Pain meds are working OK. Constitutional Denies: Fever, Chills, Sweats. Eyes Denies: Vision Change. ENT Denies: Ear Pain, Nasal Discharge, Mouth Swelling, Throat Swelling. Respiratory Denies: Cough, Dry, SOB w/exertion, Wheezing, Hemoptysis, Pleuritic Pain, Sputum. Cardiovascular Denies: Chest Pain, Palpitations, Light-headedness. Gastrointestinal Denies: Nausea, Vomiting, Abdominal Pain, Diarrhea. Genitourinary Denies: Dysuria, Frequency, Incontinence, Hematuria. Musculoskeletal Denies: Foot Pain. Skin Denies: Other (painful toes from frostbite. ). Neurological Denies: Weakness, Numbness, Incoordination, Change in speech, Confusion. Physical Exam Vital Signs / I&Os Vital Signs Date Time Temp Pulse Resp B/P Pulse O2 O2 Flow FiO2 Ox Delivery Rate 09/03 1102 98.6 84 21 123/76 100 Room Air 09/03 0842 98 09/03 0652 98.4 86 20 115/74 98 Room Air 09/03 0239 98.8 95 17 131/81 97 Room Air 09/02 2226 98.6 90 16 126/81 99 Room Air 09/02 1813 Room Air 09/02 1807 98.2 88 16 139/87 98 Room Air 09/02 1331 84 21 137/88 100 Room Air I&O 09/02 0800 09/02 1600 09/03 0000 Intake Total 2791 1805 3248 Output Total 482 239 2376 Balance 1941 1180 1198 General Appearance Alert, Oriented X3, Cooperative, No acute distress HEENT Normal exam, PERRLA, EOMI, Moist mucous membranes Lungs Clear to auscultation, Normal air movement Cardiovascular Regular rate and rhythm, Normal S1 and S2, No murmurs, gallops, rubs Abdomen Normal bowel sounds, No tenderness, No guarding, No rebound Extremities blackened toes bilat. Skin blackened toes and areas on feet. No other problems. Neurological Normal speech, Normal tone, nl, except for feet. Psych/Mental Status Mental status normal, Mood normal Assessment and Plan Problem List 1. Frostbite of both feet Plan Continue care per surgeons. Debridement when appropriate. 2. Hyponatremia Status Acute Onset Date Unknown Plan Resolved. Follow electrolytes periodically. 3. Elevated LFTs Status Acute Onset Date Unknown Plan I Blood tests improving. Continue to follow. 4. Rhabdomyolysis Status Acute Onset Date Unknown Plan CPK decreasing. Kidney function OK. Continue to follow. 5. Hyperglycemia Status Acute Onset Date Unknown Plan Improving. Hgb A1C OK. E&M Codes Rounding: Obsv-Comp/Moderate/[id number]
[2016-09-03 14:51] VITALS: BP 136/86
--- NOTE | 2016-09-03 16:19 | NUR ---
PATIENT STATES PAIN 5/10, SO SOB, NAUSEA OR ISSUES AT THIS TIME. ABLE TO WIGGLE BOTH SETS OF TOES, DRESSINGS CDI. PROVIDED WATER AND ORANGE JUICE. PT IS WEARING NON-REBREATHER AT 15L WITHOUT ISSUE. PT IS PLEASED WITH PROCESS OF HEALING. CALL LIGHT WITH PT AND BEING USED APPROPRIATELY. LEAVES FULL URINAL ON BEDSIDE TABLE AND WAITS FOR CAREPARTNERS TO EMPTY, DOESN'T WANT TO BOTHER US. USES IS APPROPRIATELY. PIVOTS TO BSC DUE TO NON WEIGHT BEARING STATUS. WILL ASK MD FLORES TO PLACE PT ON [place] FOR CONTINUED BM OUTPUT. WCTM.
--- NOTE | 2016-09-03 17:39 | NUR ---
PT IS SLEEPING AFTER BEING GIVEN 1 PERCOCET. WILL EAT DINNER LATER. WCTM.
[2016-09-03 18:43] VITALS: BP 147/86
[2016-09-03 22:51] VITALS: BP 135/90; BP 146/102
--- NOTE | 2016-09-04 01:45 | NUR ---
PT. IS RESTING IN BED AT THIS TIME. ALERT, ORIENTED, COOPERATIVE. PT. HAS DIMINISHED FEELING IN BILAT TOES. DRESSING C/D/I. ABLE TO WIGGLE ALL TOES. C/O PAIN 11/18, DEMEROL ADMINISTERED. IV FLUIDS INFUSING WITHOUT ISSUES. PT. IS BED REST, ELEVATING FEET BILAT. WCTM.
[2016-09-04 02:32] VITALS: BP 140/77
[2016-09-04 07:40] VITALS: BP 136/96
[2016-09-04 10:41] VITALS: BP 136/86
--- NOTE | 2016-09-04 11:03 | NUR ---
In to see patient with Dr. Massey, as patients RN is doing dressing changes. The Bulla from both feet has been removed with exception of one area on dorsum of left foot near the base of the 4,5th toes. Please see photos for wound characteristics, Will continue to monitor.
--- NOTE | 2016-09-04 12:49 | NUR ---
I REMOVED PTS BL FOOT DRESSINGS THIS AM, CLEANSED WITH NORMAL SALINE AND COVERED OPEN AREAS WITH XEROFORM THAT HAD BACITRACIN APPLIED TO IT. I THEN REWRAPPED THE PTS FEET WITH KERLIX. THE PT TOLERATED THE DRESSING CHANGE WELL AND REPORTED HAVING INCREASED SENSATION IN HIS FEET. DR. CORCORAN WELL THE WOUND NURSE VISUALIZED THE PTS WOUNDS DURING THE DRESSING CHANGE. PT C/O 12/18 PAIN AFTER DRESSING CHANGE WHICH WAS TREATED EFFECTIVELY WITH SCHEDULED PAIN MEDICATION.
[2016-09-04 14:32] VITALS: BP 133/93
--- NOTE | 2016-09-04 16:19 | Progress Note ---
Subjective General Patient seen and examined. Patient is doing well without much complaints. Constitutional Denies: Fever, Chills, Sweats, Weakness, Malaise, Other. Eyes Denies: Pain, Vision Change, Conjunctival Inflammation, Eyelid Inflammation, Redness, Other. Respiratory Denies: Cough, Dry, SOB w/exertion, Wheezing, Hemoptysis, Pleuritic Pain, Sputum , Other. Cardiovascular Denies: Chest Pain, Palpitations, Orthopnea, PND, Edema, Light-headedness, Other. Gastrointestinal Denies: Nausea, Vomiting, Abdominal Pain, Diarrhea, Constipation, Melena, Hematochezia, Other. Genitourinary Denies: Dysuria, Frequency, Incontinence, Hematuria, Retention, Other. Musculoskeletal Denies: Neck Pain, Shoulder Pain, Arm Pain, Back Pain, Hand Pain, Leg Pain, Foot Pain, Other. Skin Denies: Rash, Lesions, Jaundice, Bruising, Other. Neurological Denies: Weakness, Numbness, Incoordination, Change in speech, Confusion, Seizures, Other. Physical Exam Vital Signs / I&Os Vital Signs Date Time Temp Pulse Resp B/P Pulse O2 O2 Flow FiO2 Ox Delivery Rate 09/04 1432 97.5 81 18 133/93 96 09/04 1041 97.5 81 18 136/86 99 Room Air 0.0 09/04 0740 98.1 73 18 136/96 97 Room Air 0.0 09/04 0720 15.0 09/04 0232 98.8 73 17 140/77 97 Room Air 09/04 0146 15.0 09/03 2251 97.5 85 20 135/90 99 Mask 1.0 09/03 2026 15.0 09/03 1843 97.9 99 16 147/86 99 Room Air 09/03 1645 15.0 I&O 09/03 0800 09/03 1600 09/04 0000 Intake Total 1300 3272 2612 Output Total 2827 993 2330 Balance 100 2372 1512 General Appearance Alert, Oriented X3, No acute distress HEENT PERRLA, EOMI, Moist mucous membranes Lungs Clear to auscultation Neck No JVD, No masses, No thyromegaly Cardiovascular Normal S1 and S2, No murmurs, gallops, rubs Abdomen Soft, No tenderness Extremities Normal pulses, No tenderness, Strength = upper ext's, Strength = lower ext's Skin No Breakdown Neurological Normal speech, Normal tone, Cranial nerves intact, No lateralizing signs Psych/Mental Status Mood normal LAB Results Laboratory Tests 09/04 0530 Chemistry Plasma Sodium (136 - 145 mmol/L) 142 Plasma Potassium (3.5 - 5.1 mmol/L) 4.2 Plasma Chloride (98 - 107 mmol/L) 108 CO2 (Enzymatic) (21 - 32 mmol/L) 29 BUN (7 - 18 mg/dL) 12 Creatinine (0.6 - 1.3 mg/dL) 0.8 Est GFR ( Amer) (mL/min) >60 Est GFR (Non-Af Amer) (mL/min) >60 Glucose (70 - 110 mg/dL) 95 Plasma Calcium (8.5 - 10.1 mg/dL) 7.9 Plasma Magnesium (1.8 - 2.4 mg/dL) 1.7 Creatine Kinase (24 - 260 U/L) 327 CK-MB (CK-2) (0.5 - 3.2 ng/mL) 0.6 CK/CKMB % Calc (0.0 - 4.0 %) 0.2 Hematology WBC (4.5 - 11.5 K/uL) 9.8 RBC (4.50 - 5.90 M/uL) 3.10 Hgb (13.5 - 17.5 gm/dL) 9.1 Hct (41.0 - 53.0 %) 27.6 MCV (80 - 100 fL) 89 MCH (26 - 34 pg) 29 RDW (11.6 - 14.8 %) 13.8 Neut % (Auto) (50 - 75 %) 58.2 Lymph % (Auto) (25 - 40 %) 29.9 [place] % (Auto) (3 - 14 %) 9.2 Eos % (Auto) (0 - 4 %) 2.3 Baso % (Auto) (0 - 2 %) 0.4 Plt Count, EDTA (150 - 400 K/uL) 247 PUBS MCHC (31 - 37 g/dL) 33 Assessment and Plan Problem List 1. Frostbite of both feet Plan - s/p debridement and deroofing of the affected areas - wound seen with wound care, there is continued areas of necrosis including the two big toes and the second toes - will need to assess wound daily to assess need for further debridement - will complete 7 days of IV zosyn and vancomycin - daily dressing changes and monitoring 2. Illicit drug use Status Chronic Onset Date Unknown Plan - will encourage patient to not use illicit substances - patient is adament that this type of situation wouldnt happen again 3. Rhabdomyolysis Status Acute Onset Date Unknown Plan - resolved - will titrate down fluid to 100 ml/hr
[2016-09-04 17:56] VITALS: BP 145/91
--- NOTE | 2016-09-04 18:47 | NUR ---
PT IS REPORTING INCREASED PAIN THIS EVENING. HE WAS GIVEN 2 OXYCODONE AT 1035 BUT HE REPORTED THAT HE WAS SLEEPY. VITAL SIGNS WERE STABLE. WHEN HE REPORTED INCREASED PAIN AT 1432, 12.5MG OF MEPERIDINE WAS GIVEN. PT THEN REQUESTED 1 OXYCODONE WHICH WAS ADMINISTERED AT 1604. PT STATED HE WAS STILL HAVING PAIN AND WAS GIVEN ANOTHER 12.5MG OF MEPERIDINE AT 1812. I SUGGESTED THAT HE SHOULD WAIT UNTIL HIS OXYCODONE IS DUE AGAIN AND TRY 2 PILLS AGAIN FOR ADEQUATE PAIN COVERAGE. PT WAS AGREEABLE TO THIS PLAN.
--- NOTE | 2016-09-04 22:25 | NUR ---
PATIENT IS ALERT AND ORIENTED. HAS BEEN RESTING IN HIS ROOM. HAS BEEN GETTING LOVONOX INJECTIONS FOR DVT PREVENTION. WAS PASSED OFF IN REPORT THAT THE DR WAS AWARE OF CURRENT LAB VALUES. VSS. HAS HAD NO C/O SOB. NO C/O N/V. NO C/O CHEST PAIN. WAS ABLE TO MOVE TOES. PEDAL PULSES PRESNET.
[2016-09-04 22:35] VITALS: BP 150/94
--- NOTE | 2016-09-04 23:10 | NUR ---
DID IV TUBING CHANGE. IV DRESSING STILL C/D/I.
--- NOTE | 2016-09-05 02:01 | NUR ---
Pt. is resting in bed at this time. Declines the need for pain medication. Bilat LE elevated on pillows, dressings to bilat feet CDI. IV fluids/antibiotics infusing without issues. Call light within reach. WCTM.
[2016-09-05 02:30] VITALS: BP 143/92
[2016-09-05 06:55] VITALS: BP 149/92
[2016-09-05 10:52] VITALS: BP 135/92
--- NOTE | 2016-09-05 14:08 | Progress Note ---
Subjective General Patient seen and examined. Patient has no complaints at the moment. Dressing changes observed with nursing. No acute events ovenight Constitutional Denies: Fever, Chills, Sweats, Weakness, Malaise, Other. Eyes Denies: Pain, Vision Change, Conjunctival Inflammation, Eyelid Inflammation, Redness, Other. Respiratory Denies: Cough, Dry, SOB w/exertion, Wheezing, Hemoptysis, Pleuritic Pain, Sputum , Other. Cardiovascular Denies: Chest Pain, Palpitations, Orthopnea, PND, Edema, Light-headedness, Other. Gastrointestinal Denies: Nausea, Vomiting, Abdominal Pain, Diarrhea, Constipation, Melena, Hematochezia, Other. Genitourinary Denies: Dysuria, Frequency, Incontinence, Hematuria, Retention, Other. Musculoskeletal Denies: Neck Pain, Shoulder Pain, Arm Pain, Back Pain, Hand Pain, Leg Pain, Foot Pain, Other. Skin Denies: Rash, Lesions, Jaundice, Bruising, Other. Neurological Denies: Weakness, Numbness, Incoordination, Change in speech, Confusion, Seizures, Other. Physical Exam Vital Signs / I&Os Vital Signs Date Time Temp Pulse Resp B/P Pulse O2 O2 Flow FiO2 Ox Delivery Rate 09/05 1052 97.9 84 20 135/92 100 15.0 Non-Rebreather Mask 09/05 0729 15.0 09/05 0655 98.4 79 20 149/92 100 15.0 Non-Rebreather Mask 09/05 0230 98.4 86 20 143/92 99 15.0 Non-Rebreather Mask 09/05 0034 15.0 09/05 0002 15.0 09/04 2235 99.3 91 18 150/94 97 16.0 Non-Rebreather Mask 09/04 1935 15.0 09/04 1756 98.4 78 18 145/91 97 09/04 1432 97.5 81 18 133/93 96 I&O 09/04 0800 09/04 1600 09/05 0000 Intake Total 2270 1404 2240 Output Total 497 384 4231 Balance 1470 504 35 General Appearance Alert, Oriented X3, No acute distress HEENT Atraumatic, PERRLA, Moist mucous membranes Lungs Clear to auscultation Neck Supple, No JVD Cardiovascular Regular rate and rhythm, Normal S1 and S2, No murmurs, gallops, rubs Abdomen Soft, No tenderness Skin - bilateral feet examined, the areas of eschar have beginning to lighten up and show signs of perfusion, additionally areas which were deroofed show good granulation tissue. There is one blister which appears to be blood filled. will monitor Neurological Normal speech, Sensation intact, Cranial nerves intact, Strength 5/ 5 x4 ext's, No lateralizing signs Psych/Mental Status Mood normal LAB Results Laboratory Tests 09/05 0535 Chemistry Plasma Sodium (136 - 145 mmol/L) 139 Plasma Potassium (3.5 - 5.1 mmol/L) 4.3 Plasma Chloride (98 - 107 mmol/L) 105 CO2 (Enzymatic) (21 - 32 mmol/L) 28 BUN (7 - 18 mg/dL) 14 Creatinine (0.6 - 1.3 mg/dL) 0.8 Est GFR ( Amer) (mL/min) >60 Est GFR (Non-Af Amer) (mL/min) >60 Glucose (70 - 110 mg/dL) 99 Plasma Calcium (8.5 - 10.1 mg/dL) 8.2 Total Bilirubin (0.0 - 1.0 mg/dL) 0.2 AST (15 - 37 U/L) 104 ALT (12 - 78 U/L) 223 Alkaline Phosphatase (46 - 116 U/L) 133 Total Protein (6.4 - 8.2 g/dL) 5.8 Albumin (3.3 - 5.0 g/dL) 1.9 Hematology WBC (4.5 - 11.5 K/uL) 12.7 RBC (4.50 - 5.90 M/uL) 3.39 Hgb (13.5 - 17.5 gm/dL) 9.9 Hct (41.0 - 53.0 %) 30.3 MCV (80 - 100 fL) 89 MCH (26 - 34 pg) 29 RDW (11.6 - 14.8 %) 14.1 Neut % (Auto) (50 - 75 %) 64.2 Lymph % (Auto) (25 - 40 %) 23.1 [place] % (Auto) (3 - 14 %) 9.7 Eos % (Auto) (0 - 4 %) 2.6 Baso % (Auto) (0 - 2 %) 0.4 Plt Count, EDTA (150 - 400 K/uL) 308 PUBS MCHC (31 - 37 g/dL) 33 Assessment and Plan Problem List 1. Frostbite of both feet Plan - will continue with vancomycin and zosyn given persistently elevated white count - will continue to monitor wbc - daily wound inspections - will make arrangments for patient to go to acute care center or rehab with wound care visits - if newly formed blood blister is present will revist surgical opinion 2. Rhabdomyolysis Status Acute Onset Date Unknown Plan - resolved - will down titrate the iv fluid 3. Illicit drug use Status Chronic Onset Date Unknown Plan - will discuss with patient in regards to as whether he needs superintendent container terminal health
[2016-09-05 14:30] VITALS: BP 140/94
--- NOTE | 2016-09-05 15:08 | NUR ---
NUTRITION FOLLOW UP NOTE: Pt continues with good po intake, mostly 100%, had a 25% at dinner last noc but likely 2/2 pt sleeps on and off throughout the day and evening per care staff. Pt continues on vitamin which appears beneficial for micronutrient needs to derrick helper in healing. Pt likes yogurt q meal which is beneficial for gut health 2/2 pt on antibiotic tx. Continue high protein as well. RD to follow up prn/protocol.
--- NOTE | 2016-09-05 17:58 | NUR ---
PERFROMED PT DRESSING CHANGE TODAY ON BL FEET AT 1245. REMOVED KERLIX WRAP AND XEROFORM, RINSED WITH NORMAL SALINE. I REPLACED NEW XEROFORM WITH BACITRACIN ON IT TO OPEN AREAS AND REWRAPPED WITH KERLIX. FEET ARE LOOKING SLIGHTLY IMPROVED SINCE DRESSING CHANGE YESTERDAY. BLISTER ON THE TOP OF LEFT FOOT DRAINED DURING CHANGE AND BECAME FLAT. PT WAS PREMEDICATED WITH PAIN MEDICATION BEFORE DRESSING CHANGE AND HE TOLERATED IT WELL. NO COMPLAINTS OF PAIN AFTERWARD.
[2016-09-05 18:20] VITALS: BP 132/86
[2016-09-05 22:42] VITALS: BP 144/99
[2016-09-06 02:31] VITALS: BP 144/95
--- NOTE | 2016-09-06 05:30 | NUR ---
PT SLEPT OFF AND ON THROUGH THE NIGHT. MEDICATED FOR PAIN ABOUT EVERY 4 HOURS. PT PREFERS ONE PERCOCET EACH TIME. PAIN LEVEL REMAINS BELOW 5/10. PT USES THE NONREBREATHER OFF AND ON. DRESSINGS ON FEET ARE C/D/I. FEET ARE ELEVATED. VSS.
[2016-09-06 06:58] VITALS: BP 131/87
--- NOTE | 2016-09-06 11:05 | NUR ---
In to do dressing change to bilat feet with frostbite. Old dressings removed, small amount of drainage to both dressings, serosanginous. All open areas washed with NS, Dr. Massey and Patients RN in to see patient. Right foot with more pink tones to areas on toe tips, plantar surface wound is clean-pink in color, with areas of darker red. Left foot toes have macerated areas along with dark color, open areas include pink,red wound bases,along with dark areas, there is also the blister to dorsum of left foot near base of toes, filled with burgandy fluid. Positive pulses to feet, erythema has receeded on bilat feet. Bacitracin applied to all open wound bases, then covered with Xeroform and alginate in macerated areas. Gauze placed between toes, and then all secured with kerlix. Pt tolerated procedure well with pre-medication, in fact he fell asleep during dressing applications, LE elevated on pillows, will continue to monitor closely.
[2016-09-06 11:39] VITALS: BP 134/84
[2016-09-06 14:26] VITALS: BP 135/86
--- NOTE | 2016-09-06 15:32 | NUR ---
PATIENT TOLERATED SERVICES WELL TODAY, DID WELL WITH DRESSING CHANGE AND AFTER DRESSING CHANGE REPORTED PAIN ONLY AT 4/10. WATCHING MOVIES IN ROOM, IN GOOD SPIRITS AND MAKING JOKES. TURNING FROM SIDE TO SIDE AND EDUCATED ON PRESSURE ULCER PREVENTION. LOVENOX FOR DVT PREVENTION. UTILIZING I.S. GETTING UP TO 3000 WITH ENCOURAGEMENT.
--- NOTE | 2016-09-06 18:18 | Progress Note ---
Subjective General Pt seen and examined, no acute events overnight. Constitutional Denies: Fever, Chills, Sweats, Weakness, Malaise, Other. Respiratory Denies: Cough, Dry, SOB w/exertion, Wheezing, Hemoptysis, Pleuritic Pain, Sputum , Other. Cardiovascular Denies: Chest Pain, Palpitations, Orthopnea, PND, Edema, Light-headedness, Other. Gastrointestinal Denies: Nausea, Vomiting, Abdominal Pain, Diarrhea, Constipation, Melena, Hematochezia, Other. Genitourinary Denies: Dysuria, Frequency, Incontinence, Hematuria, Retention, Other. Musculoskeletal Denies: Neck Pain, Shoulder Pain, Arm Pain, Back Pain, Hand Pain, Leg Pain, Foot Pain, Other. Skin Other (- persistent sloughing ). Neurological Denies: Weakness, Numbness, Incoordination, Change in speech, Confusion, Seizures, Other. Physical Exam General Appearance Alert, Oriented X3, No acute distress HEENT Atraumatic, Moist mucous membranes Lungs Clear to auscultation Cardiovascular Regular rate and rhythm, Normal S1 and S2, No murmurs, gallops, rubs Abdomen Soft, No tenderness, No masses, No hepatosplenomegaly Extremities No edema, Normal pulses, No tenderness, Kristine's sign negative Skin - bilateral feet show evidence of severe serra bite - demarcation present Neurological Normal tone, Cranial nerves intact, No lateralizing signs Psych/Mental Status Mood normal Assessment and Plan Problem List 1. Frostbite of both feet Plan - will continue with vancomycin and zosyn given persistently elevated white count - will continue to monitor wbc - daily wound inspections - will make arrangments for patient to go to acute care center or rehab with wound care visits - if newly formed blood blister is present will revist surgical opinion 2. Rhabdomyolysis Status Acute Onset Date Unknown Plan - resolved - will stop iv fluids 3. Illicit drug use Status Chronic Onset Date Unknown Plan - will discuss drug treatment out patient options
--- NOTE | 2016-09-06 19:46 | NUR ---
I discussed with the patient their current medications, possible side effects, and answered questions.
--- NOTE | 2016-09-06 20:03 | NUR ---
PATIENT IS ALERT AND ORIENTED. NO C/O N/V OR SOB/ NO C/O CHEST PAIN. WILL CONTINUE TO MONITO BOTH FEET. GOOD PEDAL PULSES PRESENT. HAS DIMINISHED SENSATION IN TOES PT STATES. LUNG SOUND CLEAR. WAS PASSED OFF IN REPORT IS AWARE OF CURRENT LAB VALUES. IS GETTING LOVONOX INJECTIONS FOR DVT PREVENTION.
[2016-09-06 22:24] VITALS: BP 140/87
[2016-09-07 03:09] VITALS: BP 134/83
--- NOTE | 2016-09-07 06:36 | NUR ---
UNEVENTFUL NIGHT, PT RESTED WELL, REQUESTED PAIN MEDICATION ONLY ONE TIME. WORE HIS NON-REBREATHER FOR MOST OF THE NIGHT. GOOD URINE OUTPUT. DRESSINGS ON FEET ARE C/D/I.
[2016-09-07 07:30] VITALS: BP 130/89
--- NOTE | 2016-09-07 07:34 | Progress Note ---
Subjective General Note Date: September 07, 2016 Admission Date: August 29, 2016 Hospital Day: 10 PCP: None Status: Inpatient Advanced Directive: Full Code Room: 208 Brief History: The patient is a 36-year-old white male with a previous history of psychiatric disease who presented to [facility] emergency department secondary to suspected frostbite of both feet. [facility] ER evaluation was consistent with probable frostbite both feet, auditory hallucinations. Secondary to the above, the patient was admitted by Hardy Jeffrey M.D. for further evaluation and treatment. For other history present illness, past medical history, family history, social history, review of systems, and admission physical examination please see the patient's history and physical examination and ER visit note in the patient's medical record. Subjective: The patient states he is doing well today. Foot pain adequately controlled. No specific complaints at this time. Patient requests: None Medications and Allergies Medications Current Medications Sig/Mateo Start time Last Medication Dose Route Stop Time Status Admin Oxycodone HCl 5 MG Q4H PRN 09/06 1215 AC 09/07 PO 1344 Bacitracin See Dose DAILY 09/03 0900 AC 09/06 Insts (1) TOP 0946 Meperidine HCl See Dose Q1H PRN 09/02 1115 AC 09/07 Insts (2) IV 1655 Celecoxib 200 MG BID 09/01 1100 AC 09/07 PO 0932 Diphenhydramine HCl 25 MG Q6H PRN 09/01 1100 AC 09/01 PO 1124 Multivit/ 1 TAB DAILY 08/31 1200 AC 09/07 Folic Acid/Iron PO 0932 Enoxaparin Sodium 40 MG DAILY 08/29 0900 AC 09/07 SC 0932 Pantoprazole Sodium 40 MG DAILY@0600 08/29 0600 AC 09/07 Sesquihydrate PO 0608 Docusate Sodium 250 MG BID PRN 08/29 0115 AC 09/01 PO 1440 Ondansetron HCl 4 MG Q6H PRN 08/29 0115 AC IV Sodium Chloride 1,000 ML ASDIRECTED 08/29 011 AC 09/07 IV 0742 Dose Instructions: (1)Bacitracin: APPLY TO OPEN AREAS (2)Meperidine HCl: 12.5 - 25 MG Allergies Coded Allergies: NKA (08/29/16) Physical Exam Vital Signs / I&Os Vital Signs Date Time Temp Pulse Resp B/P Pulse O2 O2 Flow FiO2 Ox Delivery Rate 09/07 0730 98.2 84 18 130/89 99 15.0 Non-Rebreather Mask 09/07 0309 98.2 89 18 134/83 99 Room Air 09/07 0015 15.0 Non-Rebreather Mask 09/06 2224 98.4 85 17 140/87 98 15.0 Non-Rebreather Mask 09/06 1923 15.0 09/06 1741 15.0 09/06 1426 98.6 89 18 135/86 96 09/06 1139 98.1 81 18 134/84 96 Room Air 15.0 09/06 0845 15.0 Non-Rebreather Mask 09/06 0756 15.0 I&O 09/07 0000 09/06 1600 09/06 0800 Intake Total 1340 2559 1860 Output Total 2675 2150 2650 Balance -1335 409 -790 General Appearance Alert, Oriented X3, Cooperative, No acute distress Skin Feet remained stable. No new bullae present. No clear evidence of infection. Areas demarcating regarding dry gangrene. No debridement at this time. Neurological Grossly normal Psych/Mental Status Mental status normal, Mood normal LAB Results Laboratory Tests 09/07 0539 Chemistry Plasma Sodium (136 - 145 mmol/L) 139 Plasma Potassium (3.5 - 5.1 mmol/L) 4.3 Plasma Chloride (98 - 107 mmol/L) 104 CO2 (Enzymatic) (21 - 32 mmol/L) 27 BUN (7 - 18 mg/dL) 16 Creatinine (0.6 - 1.3 mg/dL) 0.7 Est GFR ( Amer) (mL/min) >60 Est GFR (Non-Af Amer) (mL/min) >60 Glucose (70 - 110 mg/dL) 121 Plasma Calcium (8.5 - 10.1 mg/dL) 9.1 Total Bilirubin (0.0 - 1.0 mg/dL) 0.2 AST (15 - 37 U/L) 149 ALT (12 - 78 U/L) 364 Alkaline Phosphatase (46 - 116 U/L) 180 Total Protein (6.4 - 8.2 g/dL) 6.9 Albumin (3.3 - 5.0 g/dL) 2.5 Hematology WBC (4.5 - 11.5 K/uL) 14.9 RBC (4.50 - 5.90 M/uL) 3.86 Hgb (13.5 - 17.5 gm/dL) 11.1 Hct (41.0 - 53.0 %) 34.0 MCV (80 - 100 fL) 88 MCH (26 - 34 pg) 29 RDW (11.6 - 14.8 %) 14.0 Neut % (Auto) (50 - 75 %) 68.8 Lymph % (Auto) (25 - 40 %) 21.3 [place] % (Auto) (3 - 14 %) 7.7 Eos % (Auto) (0 - 4 %) 2.0 Baso % (Auto) (0 - 2 %) 0.2 Plt Count, EDTA (150 - 400 K/uL) 443 PUBS MCHC (31 - 37 g/dL) 33 Assessment and Plan Problem List 1. Frostbite of both feet Plan -Patient's feet stable at this time -No overt evidence of infection -Areas of apparent dry gangrene distal toes left foot -Patient evaluated by Dr. Niño and wound care nurse today. -See recommendations per Dr. Niño -Continue to explore opportunities for placement in rehabilitation postdischarge -no beds available at this time 2. Illicit drug use Status Chronic Onset Date Unknown Plan -Stable -Patient's mental status good -Encourage outpatient drug treatment program. 3. Rhabdomyolysis Status Acute Onset Date Unknown Plan -Resolved 4. Cellulitis Status Acute Onset Date Unknown Plan -No clear evidence of cellulitis -Persistent mild leukocytosis -Patient afebrile over the past 48 hours -Antimicrobials discontinued -Monitor closely 5. Elevated LFTs Status Acute Onset Date Unknown Plan -Patient with mild elevation of LFTs -Transaminase elevations slowly rising -Check hepatitis profile -DC Tylenol, Celebrex -Monitor Current status: Fair, improved Anticipated discharge date: Anticipated discharge when appropriate placement found, patient medically stable for discharge in the next 1-2 days Anticipated discharge placement: intermediate facility Patient care time: Time spent in chart review, patient interview, physical exam, CPOE, and care documentation: 25 minutes Visit to patient today: 2 Complexity of care: Moderate E&M Codes Rounding: Inpt-Moderate/[id number]
[2016-09-07 09:45] VITALS: BP 131/86
[2016-09-07 14:15] VITALS: BP 146/94
--- NOTE | 2016-09-07 14:21 | Progress Note ---
Subjective General 36 year old man with bilateral frostbite. Dr. Hinton debrided the ruptured bullae. The pt. feels fine and has no new complaints. Physical Exam Vital Signs / I&Os Vital Signs Date Time Temp Pulse Resp B/P Pulse O2 O2 Flow FiO2 Ox Delivery Rate 09/07 0945 98.1 90 20 131/86 99 Room Air 0.0 09/07 0825 15.0 Non-Rebreather Mask 09/07 0730 98.2 84 18 130/89 99 15.0 Non-Rebreather Mask 09/07 0309 98.2 89 18 134/83 99 Room Air 09/07 0015 15.0 Non-Rebreather Mask 09/06 2224 98.4 85 17 140/87 98 15.0 Non-Rebreather Mask 09/06 1923 15.0 09/06 1741 15.0 09/06 1426 98.6 89 18 135/86 96 I&O 09/06 0800 09/06 1600 09/07 0000 Intake Total 1860 2559 1340 Output Total 2650 2150 2675 Balance -790 409 -1335 General Appearance Alert, Oriented X3, Cooperative, No acute distress HEENT Atraumatic, PERRLA Lungs Normal air movement Extremities The plantar feet have intact tissue under the bullae that is now skinning in. The toes are still in question and the left big toes and adjacent three toes are still dark. There is no cellulitis or wet gangrene. Assessment and Plan Problem List 1. Frostbite of both feet Plan I have recommended the toes allowed to dry out and convert to dry gangrene while any raw remaining areas can receive vasline gauze or xeroform. In the long run we will try to salvage as much tissue as possible but some partial toe amputations or debridement will become necessary. In the absence of ascending gangrene or cellulitis it is best to continue to allow things to demarcate for now.
--- NOTE | 2016-09-07 14:55 | NUR ---
In to see patient with Dr. Niño and Dr. Jeffrey, old dressings removed with scant drainage, wounds assessed, slight improvement noted to both, received orders from Dr. Niño to dry toe areas out, orders for adaptic over open areas on toes, covered with gauze, and continue bacitracin to plantar surface of feet, cover with gauze or ABD pad, then kerlix, continue to elevate and daily dressing changes. Will continue to monitor.
--- NOTE | 2016-09-07 16:20 | NUR ---
PATIENT IS ALERT AND ORIENTED. VSS. WILL CONTINUE TO MONITOR WOUNDS ON BOTH FEET. NANCI THE WOUND CARE NURSE SAID NOT TO WORRY ABOUT A DRESSING CHANGE TODAY SINCE IT WAS JUST DONE EARLIER TODAY, AND THE NEXT DRESSING CHANGE IS DUE TOMORROW MORNING. PATIENT IS IN NO DISTRESS. IS CURRENTLY WATCHING TV AND RESTING IN HIS ROOM. WAS PASSED OFF IN REPORT THE DR IS AWARE OF THE PATIETNS CURRENT LAB VALUES. AND IS GETTING LOVONOX INJECTIONS FOR DVT PREVENTION.
[2016-09-07 18:00] VITALS: BP 139/88
--- NOTE | 2016-09-08 01:58 | NUR ---
Patient's dressing appear dry and intact. Had to have a dose of pain med after using the commode by the bedside as he says both feet were throbbing when he was sitting out.
--- NOTE | 2016-09-08 02:10 | NUR ---
Patient had to be kept on O2 as she tends to desat a couple of minutes without the nasal cannula. she was given a bedtime dose of diasepam to help her settle for the night.
[2016-09-08 02:48] VITALS: BP 139/92
[2016-09-08 07:06] VITALS: BP 135/92
--- NOTE | 2016-09-08 07:28 | Progress Note ---
Subjective General Note Date: September 08, 2016 Admission Date: August 29, 2016 Hospital Day: 11 PCP: None Status: Inpatient Advanced Directive: Full Code Room: 208 Brief History: The patient is a 36-year-old white male with a previous history of psychiatric disease who presented to [facility] emergency department secondary to suspected frostbite of both feet. [facility] ER evaluation was consistent with probable frostbite both feet, auditory hallucinations. Secondary to the above, the patient was admitted by Hardy Jeffrey M.D. for further evaluation and treatment. For other history present illness, past medical history, family history, social history, review of systems, and admission physical examination please see the patient's history and physical examination and ER visit note in the patient's medical record. Subjective: The patient states he is doing well today. Foot pain adequately controlled. Did not sleep well last night. No specific complaints at this time. Patient requests: None Medications and Allergies Medications Current Medications Sig/Mateo Start time Last Medication Dose Route Stop Time Status Admin Oxycodone HCl 5 MG Q4H PRN 09/06 1215 AC 09/07 PO 2255 Bacitracin See Dose DAILY 09/03 0900 AC 09/06 Insts (1) TOP 0946 Meperidine HCl See Dose Q1H PRN 09/02 1115 AC 09/08 Insts (2) IV 0547 Celecoxib 200 MG BID 09/01 1100 AC 09/07 PO 2015 Diphenhydramine HCl 25 MG Q6H PRN 09/01 1100 AC 09/01 PO 1124 Multivit/ 1 TAB DAILY 08/31 1200 AC 09/07 Folic Acid/Iron PO 0932 Enoxaparin Sodium 40 MG DAILY 08/29 09 AC 09/07 SC 0932 Pantoprazole Sodium 40 MG DAILY@0600 08/29 0600 AC 09/08 Sesquihydrate PO 0534 Docusate Sodium 250 MG BID PRN 08/29 0115 AC 09/07 PO 2254 Ondansetron HCl 4 MG Q6H PRN 08/29 0115 AC IV Sodium Chloride 1,000 ML ASDIRECTED 08/29 011 AC 09/08 IV 0358 Dose Instructions: (1)Bacitracin: APPLY TO OPEN AREAS (2)Meperidine HCl: 12.5 - 25 MG Allergies Coded Allergies: NKA (08/29/16) Physical Exam Vital Signs / I&Os Vital Signs Date Time Temp Pulse Resp B/P Pulse O2 O2 Flow FiO2 Ox Delivery Rate 09/08 0706 98.4 88 18 135/92 96 Room Air 0.0 09/08 0248 98.4 87 14 139/92 96 Room Air 09/08 0134 Room Air 09/07 1800 98.4 77 18 139/88 96 Room Air 09/07 1630 0.0 09/07 1415 98.8 93 18 146/94 98 Room Air 09/07 0945 98.1 90 20 131/86 99 Room Air 0.0 09/07 0825 15.0 Non-Rebreather Mask 09/07 0730 98.2 84 18 130/89 99 15.0 Non-Rebreather Mask I&O 09/08 0000 09/07 1600 09/07 0800 Intake Total 1080 2128 2433 Output Total 2250 1950 2600 Balance -1170 178 -167 General Appearance Alert, Oriented X3, Cooperative, No acute distress Lungs Clear to auscultation, Normal air movement Cardiovascular Regular rate and rhythm, Normal S1 and S2, No murmurs, gallops, rubs Abdomen Normal bowel sounds, Soft, No tenderness Extremities No cyanosis, No clubbing, bilateral foot exam unchanged other than mild bulla present dorsum left foot. No clear area of cellulitis. See photodocumentation. Neurological Cranial nerves intact, No lateralizing signs Psych/Mental Status Mental status normal, Mood normal Assessment and Plan Problem List 1. Frostbite of both feet Plan -Stable -Continue present care -Continue follow-up by surgery with debridement as necessary -Continue to look for postacute care-[facility] facility 2. Illicit drug use Status Chronic Onset Date Unknown Plan -Stable -Encourage outpatient treatment program 3. Hyponatremia Status Acute Onset Date Unknown Plan -Resolved -Sodium 138 4. Elevated LFTs Status Acute Onset Date Unknown Plan -Improved -AST 56 (149-09/07) -ALT 257 (364-09/07) -ALKALINE PHOSPHATASE 163 (180-09/07) -Hepatitis profile unremarkable -Acetaminophen/Celebrex discontinued -Monitor 5. Rhabdomyolysis Status Acute Onset Date Unknown Plan -Resolved 6. Hyperglycemia Status Acute Onset Date Unknown Plan -Resolved -Fasting blood sugar 99 today 7. Cellulitis Status Acute Onset Date Unknown Plan -No clear evidence of cellulitis -WBC remains elevated -Patient afebrile -CRP/ESR-elevated -Monitor closely patient off antimicrobials at this time Current status: Fair, stable Anticipated discharge date: Anticipated discharge 1-2 days with placement in appropriate post acute setting Anticipated discharge placement: longterm facility Patient care time: Time spent in chart review, patient interview, physical exam, CPOE, and care documentation: 25 minutes Visit to patient today: 1 Complexity of care: Moderate E&M Codes Rounding: Inpt-Moderate/36158
--- NOTE | 2016-09-08 07:28 | Progress Note ---
Subjective General Note Date: September 08, 2016 Admission Date: August 29, 2016 Hospital Day: 11 PCP: None Status: Inpatient Advanced Directive: Full Code Room: 208 Brief History: The patient is a 36-year-old white male with a previous history of psychiatric disease who presented to [facility] emergency department secondary to suspected frostbite of both feet. [facility] ER evaluation was consistent with probable frostbite both feet, auditory hallucinations. Secondary to the above, the patient was admitted by Hardy Jeffrey M.D. for further evaluation and treatment. For other history present illness, past medical history, family history, social history, review of systems, and admission physical examination please see the patient's history and physical examination and ER visit note in the patient's medical record. Subjective: The patient states he is doing well today. Foot pain adequately controlled. Did not sleep well last night. No specific complaints at this time. Patient requests: None Medications and Allergies Medications Current Medications Sig/Mateo Start time Last Medication Dose Route Stop Time Status Admin Oxycodone HCl 5 MG Q4H PRN 09/06 1215 AC 09/07 PO 2255 Bacitracin See Dose DAILY 09/03 0900 AC 09/06 Insts (1) TOP 0946 Meperidine HCl See Dose Q1H PRN 09/02 1115 AC 09/08 Insts (2) IV 0547 Celecoxib 200 MG BID 09/01 1100 AC 09/07 PO 2015 Diphenhydramine HCl 25 MG Q6H PRN 09/01 1100 AC 09/01 PO 1124 Multivit/ 1 TAB DAILY 08/31 1200 AC 09/07 Folic Acid/Iron PO 0932 Enoxaparin Sodium 40 MG DAILY 08/29 09 AC 09/07 SC 0932 Pantoprazole Sodium 40 MG DAILY@0600 08/29 0600 AC 09/08 Sesquihydrate PO 0534 Docusate Sodium 250 MG BID PRN 08/29 0115 AC 09/07 PO 2254 Ondansetron HCl 4 MG Q6H PRN 08/29 0115 AC IV Sodium Chloride 1,000 ML ASDIRECTED 08/29 011 AC 09/08 IV 0358 Dose Instructions: (1)Bacitracin: APPLY TO OPEN AREAS (2)Meperidine HCl: 12.5 - 25 MG Allergies Coded Allergies: NKA (08/29/16) Physical Exam Vital Signs / I&Os Vital Signs Date Time Temp Pulse Resp B/P Pulse O2 O2 Flow FiO2 Ox Delivery Rate 09/08 0706 98.4 88 18 135/92 96 Room Air 0.0 09/08 0248 98.4 87 14 139/92 96 Room Air 09/08 0134 Room Air 09/07 1800 98.4 77 18 139/88 96 Room Air 09/07 1630 0.0 09/07 1415 98.8 93 18 146/94 98 Room Air 09/07 0945 98.1 90 20 131/86 99 Room Air 0.0 09/07 0825 15.0 Non-Rebreather Mask 09/07 0730 98.2 84 18 130/89 99 15.0 Non-Rebreather Mask I&O 09/08 0000 09/07 1600 09/07 0800 Intake Total 1080 2128 2433 Output Total 2250 1950 2600 Balance -1170 178 -167 General Appearance Alert, Oriented X3, Cooperative, No acute distress Lungs Clear to auscultation, Normal air movement Cardiovascular Regular rate and rhythm, Normal S1 and S2, No murmurs, gallops, rubs Abdomen Normal bowel sounds, Soft, No tenderness Extremities No cyanosis, No clubbing, bilateral foot exam unchanged other than mild bulla present dorsum left foot. No clear area of cellulitis. See photodocumentation. Neurological Cranial nerves intact, No lateralizing signs Psych/Mental Status Mental status normal, Mood normal Assessment and Plan Problem List 1. Frostbite of both feet Plan -Stable -Continue present care -Continue follow-up by surgery with debridement as necessary -Continue to look for postacute care-longterm facility 2. Illicit drug use Status Chronic Onset Date Unknown Plan -Stable -Encourage outpatient treatment program 3. Hyponatremia Status Acute Onset Date Unknown Plan -Resolved -Sodium 138 4. Elevated LFTs Status Acute Onset Date Unknown Plan -Improved -AST 56 (149-09/07) -ALT 257 (364-09/07) -ALKALINE PHOSPHATASE 163 (180-09/07) -Hepatitis profile unremarkable -Acetaminophen/Celebrex discontinued -Monitor 5. Rhabdomyolysis Status Acute Onset Date Unknown Plan -Resolved 6. Hyperglycemia Status Acute Onset Date Unknown Plan -Resolved -Fasting blood sugar 99 today 7. Cellulitis Status Acute Onset Date Unknown Plan -No clear evidence of cellulitis -WBC remains elevated -Patient afebrile -CRP/ESR-elevated -Monitor closely patient off antimicrobials at this time Current status: Fair, stable Anticipated discharge date: Anticipated discharge 1-2 days with placement in appropriate post acute setting Anticipated discharge placement: detention facility Patient care time: Time spent in chart review, patient interview, physical exam, CPOE, and care documentation: 25 minutes Visit to patient today: 1 Complexity of care: Moderate E&M Codes Rounding: Inpt-Moderate/70120
--- NOTE | 2016-09-08 10:00 | NUR ---
Nutrition follow-up note: Pt's nutritional intake appears to be adequate to meet nutritional needs (PO ~90-100% in recent days) on high protein diet w/ muscle milk and snacks between meals. Continues on vitamin for wound healing. Wt stable since admit (up 1.2 kg.) Per MD note 09/08 foot pain adequately controlled, and may d/c within 1-2 days to appropriate post-acute setting. RD will continue to follow for additional nutrition needs.
[2016-09-08 10:57] VITALS: BP 145/86
--- NOTE | 2016-09-08 13:16 | NUR ---
Spoke with Dr. Niño regarding patient discussed mobility, received orders for limited weight bearing, bathroom privileges, suggesting that if possible keep weight toward heels. Received PT referral from Dr. Jeffrey to assist, as pt has been bedbound since admission. Please see PT report. Dr. Niño also stated pt okay for discharge as long as HH, wound care, other ADL needs in place for patient. Reported to patients RN. Dressing change completed with patient receiving premedication. Old dressings removed, with small amount of serosanginous drainage to just a few areas on both feet. Open areas cleansed with NS. Bilat toes are bone drier, per dr orders, darkness seems to be defining on both sets of toes, there is still the burgandy filled blister to the base of the 4&5th toes. On the plantar surface of the left foot there is a area of yellow in mid-sole area, this is adherent, will continue to monitor closely. Please see photos in the progress note section with todays date. Applied Therahoney to slough section of left sole of foot, covered with adaptic, applied thin layer of Bacitracin, then vaseline gauze over bilat soles of foot, and adaptic over any open areas, left rest to dry. Covered with gauze, the kerlix. Both legs elevated on pillows. Pt tolerated procedure well, states feels more pain after dressings are placed back on. Pts and RN and this nurse also checked skin on sacrum/coccyx, there was no erythema and skin is intact, pt remains on WAFFLE mattress. Will continue to monitor. placed vaseline gauze over rest of area and right sole of foot, with
[2016-09-08 14:24] VITALS: BP 138/93
--- NOTE | 2016-09-08 18:16 | NUR ---
PT IS A&OX3, LS CTA AND BT ACTIVE. C/O PAIN IN FEET AT A 6/10, PAIN MEDS GIVEN, WCTM. NO C/O NAUSEA. UP IN WC, MOVING AROUND UNIT IN WC. VSS. NO IV ACCESS, MD AWARE. RESTING W/ CALL LIGHT IN REACH.
[2016-09-08 18:30] VITALS: BP 124/68
[2016-09-08 22:31] VITALS: BP 143/82
--- NOTE | 2016-09-09 01:50 | NUR ---
Patient successfully opened his bowels tonight. He requred a dose of pain med afterwards as both his feet was throbbing in pain afterwards. He was advised to elevate legs while in bed.
[2016-09-09 02:56] VITALS: BP 134/82
[2016-09-09 05:12] VITALS: BP 132/85
--- NOTE | 2016-09-09 07:44 | Progress Note ---
Subjective General Note Date: September 09, 2016 Admission Date: August 29, 2016 Hospital Day: 12 PCP: None Status: Inpatient Advanced Directive: Full Code Room: 208 Brief History: The patient is a 36-year-old white male with a previous history of psychiatric disease who presented to [facility] emergency department secondary to suspected frostbite of both feet. [facility] ER evaluation was consistent with probable frostbite both feet, auditory hallucinations. Secondary to the above, the patient was admitted by Hardy Jeffrey M.D. for further evaluation and treatment. For other history present illness, past medical history, family history, social history, review of systems, and admission physical examination please see the patient's history and physical examination and ER visit note in the patient's medical record. Subjective: The patient states she is doing well today. Persistent pain in feet which is adequately controlled with current medical regimen. Patient requests: None Medications and Allergies Medications Current Medications Sig/Mateo Start time Last Medication Dose Route Stop Time Status Admin Oxycodone HCl 5 MG Q3H PRN 09/08 211 AC 09/09 PO 0507 Bacitracin See Dose DAILY 09/03 0900 AC 09/08 Insts (1) TOP 1025 Diphenhydramine HCl 25 MG Q6H PRN 09/01 1100 AC 09/01 PO 1124 Multivit/ 1 TAB DAILY 08/31 1200 AC 09/08 Folic Acid/Iron PO 0843 Enoxaparin Sodium 40 MG DAILY 08/29 0900 AC 09/08 SC 0843 Pantoprazole Sodium 40 MG DAILY@0600 08/29 0600 AC 09/09 Sesquihydrate PO 0556 Docusate Sodium 250 MG BID PRN 08/29 0115 AC 09/07 PO 2254 Ondansetron HCl 4 MG Q6H PRN 08/29 0115 AC IV Dose Instructions: (1)Bacitracin: APPLY TO OPEN AREAS Allergies Coded Allergies: NKA (08/29/16) Physical Exam Vital Signs / I&Os Vital Signs Date Time Temp Pulse Resp B/P Pulse O2 O2 Flow FiO2 Ox Delivery Rate 09/09 0512 99.1 71 15 132/85 99 Room Air 09/09 0256 98.2 92 18 134/82 97 Room Air 09/09 0030 Room Air 09/08 2231 98.1 96 18 143/82 97 Room Air 09/08 1830 98.6 96 18 124/68 98 09/08 1630 Room Air 09/08 1424 98.6 105 18 138/93 98 09/08 1057 98.4 85 16 145/86 96 Room Air 0.0 I&O 09/09 0000 09/08 1600 09/08 0800 Intake Total 500 1225 1606 Output Total 2188 074 8681 Balance -500 425 581 General Appearance Alert, Oriented X3, Cooperative, No acute distress Lungs Clear to auscultation, Normal air movement Cardiovascular Regular rate and rhythm, Normal S1 and S2 Abdomen Normal bowel sounds, Soft, No tenderness Neurological Grossly normal Psych/Mental Status Mental status normal, Mood normal Assessment and Plan Problem List 1. Frostbite of both feet Plan -Status unchanged -Continue with wound care/surgical follow-up -Attempt to find placement for postacute rehabilitation -Patient may bear weight per physical therapy/surgical recommendations 2. Illicit drug use Status Chronic Onset Date Unknown Plan -Stable -Encourage post discharge drug treatment program 3. Hyponatremia Status Acute Onset Date Unknown Plan -Resolved 4. Elevated LFTs Status Acute Onset Date Unknown Plan -LFTs continue to improve -AST 33, ALT 202, alkaline phosphatase 155. These are all improved since she just today. -Monitor 5. Cellulitis Status Acute Onset Date Unknown Plan -Stable, improved-no overt signs of cellulitis at this time -Afebrile 48 hours, WBC improved since yesterday -WBC 13.1 (15.5-09/08) -Monitor 6. Rhabdomyolysis Status Acute Onset Date Unknown Plan -Resolved 7. Hyperglycemia Status Acute Onset Date Unknown Plan -Resolved Current status: Fair, improved Anticipated discharge date: Anticipated discharge in 1-2 days to appropriate placement facility Anticipated discharge placement: long term facility/rehabilitation Patient care time: Time spent in chart review, patient interview, physical exam, CPOE, and care documentation: 25 minutes Visit to patient today: 2 Complexity of care: Moderate E&M Codes Rounding: Inpt-Moderate/09405
--- NOTE | 2016-09-09 07:44 | Progress Note ---
Subjective General Note Date: September 09, 2016 Admission Date: August 29, 2016 Hospital Day: 12 PCP: None Status: Inpatient Advanced Directive: Full Code Room: 208 Brief History: The patient is a 36-year-old white male with a previous history of psychiatric disease who presented to [facility] emergency department secondary to suspected frostbite of both feet. [facility] ER evaluation was consistent with probable frostbite both feet, auditory hallucinations. Secondary to the above, the patient was admitted by Hardy Jeffrey M.D. for further evaluation and treatment. For other history present illness, past medical history, family history, social history, review of systems, and admission physical examination please see the patient's history and physical examination and ER visit note in the patient's medical record. Subjective: The patient states she is doing well today. Persistent pain in feet which is adequately controlled with current medical regimen. Patient requests: None Medications and Allergies Medications Current Medications Sig/Mateo Start time Last Medication Dose Route Stop Time Status Admin Oxycodone HCl 5 MG Q3H PRN 09/08 211 AC 09/09 PO 0507 Bacitracin See Dose DAILY 09/03 0900 AC 09/08 Insts (1) TOP 1025 Diphenhydramine HCl 25 MG Q6H PRN 09/01 1100 AC 09/01 PO 1124 Multivit/ 1 TAB DAILY 08/31 1200 AC 09/08 Folic Acid/Iron PO 0843 Enoxaparin Sodium 40 MG DAILY 08/29 0900 AC 09/08 SC 0843 Pantoprazole Sodium 40 MG DAILY@0600 08/29 0600 AC 09/09 Sesquihydrate PO 0556 Docusate Sodium 250 MG BID PRN 08/29 0115 AC 09/07 PO 2254 Ondansetron HCl 4 MG Q6H PRN 08/29 0115 AC IV Dose Instructions: (1)Bacitracin: APPLY TO OPEN AREAS Allergies Coded Allergies: NKA (08/29/16) Physical Exam Vital Signs / I&Os Vital Signs Date Time Temp Pulse Resp B/P Pulse O2 O2 Flow FiO2 Ox Delivery Rate 09/09 0512 99.1 71 15 132/85 99 Room Air 09/09 0256 98.2 92 18 134/82 97 Room Air 09/09 0030 Room Air 09/08 2231 98.1 96 18 143/82 97 Room Air 09/08 1830 98.6 96 18 124/68 98 09/08 1630 Room Air 09/08 1424 98.6 105 18 138/93 98 09/08 1057 98.4 85 16 145/86 96 Room Air 0.0 I&O 09/09 0000 09/08 1600 09/08 0800 Intake Total 500 1225 1606 Output Total 1412 714 9589 Balance -500 425 581 General Appearance Alert, Oriented X3, Cooperative, No acute distress Lungs Clear to auscultation, Normal air movement Cardiovascular Regular rate and rhythm, Normal S1 and S2 Abdomen Normal bowel sounds, Soft, No tenderness Neurological Grossly normal Psych/Mental Status Mental status normal, Mood normal Assessment and Plan Problem List 1. Frostbite of both feet Plan -Status unchanged -Continue with wound care/surgical follow-up -Attempt to find placement for postacute rehabilitation -Patient may bear weight per physical therapy/surgical recommendations 2. Illicit drug use Status Chronic Onset Date Unknown Plan -Stable -Encourage post discharge drug treatment program 3. Hyponatremia Status Acute Onset Date Unknown Plan -Resolved 4. Elevated LFTs Status Acute Onset Date Unknown Plan -LFTs continue to improve -AST 33, ALT 202, alkaline phosphatase 155. These are all improved since she just today. -Monitor 5. Cellulitis Status Acute Onset Date Unknown Plan -Stable, improved-no overt signs of cellulitis at this time -Afebrile 48 hours, WBC improved since yesterday -WBC 13.1 (15.5-09/08) -Monitor 6. Rhabdomyolysis Status Acute Onset Date Unknown Plan -Resolved 7. Hyperglycemia Status Acute Onset Date Unknown Plan -Resolved Current status: Fair, improved Anticipated discharge date: Anticipated discharge in 1-2 days to appropriate placement facility Anticipated discharge placement: [facility] facility/rehabilitation Patient care time: Time spent in chart review, patient interview, physical exam, CPOE, and care documentation: 25 minutes Visit to patient today: 2 Complexity of care: Moderate E&M Codes Rounding: Inpt-Moderate/36528
--- NOTE | 2016-09-09 08:18 | NUR ---
RECEIVED PT IN BED, AWAKE, ALERT, ORIENTED, COHERENT, COOPERATIVE. V/S TAKEN AND RECORDED. ASSESSMENT DONE. PT TOELRATED HIS MEALS. COMPLAINT OF PAIN, PAIN MEDS AND DUE MEDS GIVEN. SEEN AND EXAMINED BY DR FLEMING. I WILL CHANGE THE DRESSING LATER AND WILL CALL DR FLEMING TO SEE HIS WOUNDS. PT UNDERSTOOD.
--- NOTE | 2016-09-09 09:00 | NUR ---
MOM CAME TO VISIT PT. MS NICHOLE AND DR FLEMING NOTIFIED. QUESTIONS AND COCNERS ASNWERED.
--- NOTE | 2016-09-09 10:00 | NUR ---
TOOK OFF THE DRESSING. DR FLEMING NOTIFIED BEFORE WOUND CARE. THEN CLEANSE BOTH FEET WITH NS, TAP IT DRY. APPLIED BICITRACIN TO DORSAL FEET OPEN AREAS. THEN VASELINIZED GAUZE, PLACE VASELINED GAUZE IN BETWEEN TOES. APPLIED THERAHONEY TO SLOUGH ON THE SOLE OF RTN LFT FOOT AND MID SOLE SECTION. THEN WRAPPED IT WITH KERLIX. ELEVATED BOTH LEGS WITH PILLOWS.
[2016-09-09 11:16] VITALS: BP 126/73
[2016-09-09 14:00] VITALS: BP 127/76
[2016-09-09 17:45] VITALS: BP 129/76
--- NOTE | 2016-09-09 19:58 | NUR ---
Patient spent time out on the wheelchair being wheeled by his mom who also volunteered to give him personal care. Bilateral feet dressings appear dry and intact. he continues on topical antibiotics every dressing change.
[2016-09-09 21:30] VITALS: BP 128/81
[2016-09-10 03:47] VITALS: BP 128/78
[2016-09-10 06:56] VITALS: BP 122/76
--- NOTE | 2016-09-10 07:27 | Progress Note ---
Subjective General Note Date: September 10, 2016 Admission Date: August 29, 2016 Hospital Day: 13 PCP: None Status: Inpatient Advanced Directive: Full Code Room: 208 Brief History: The patient is a 36-year-old white male with a previous history of psychiatric disease who presented to [facility] emergency department secondary to suspected frostbite of both feet. [facility] ER evaluation was consistent with probable frostbite both feet, auditory hallucinations. Secondary to the above, the patient was admitted by Hardy Jeffrey M.D. for further evaluation and treatment. For other history present illness, past medical history, family history, social history, review of systems, and admission physical examination please see the patient's history and physical examination and ER visit note in the patient's medical record. Subjective: The patient is doing well at this time. No specific complaints. Pain adequately controlled Patient requests: None Medications and Allergies Medications Current Medications Sig/Mateo Start time Last Medication Dose Route Stop Time Status Admin Oxycodone HCl 5 MG Q4H PRN 09/09 1600 AC 09/10 PO 0344 Bacitracin See Dose DAILY 09/03 0900 AC 09/09 Insts (1) TOP 0826 Diphenhydramine HCl 25 MG Q6H PRN 09/01 1100 AC 09/01 PO 1124 Multivit/ 1 TAB DAILY 08/31 1200 AC 09/09 Folic Acid/Iron PO 0826 Enoxaparin Sodium 40 MG DAILY 08/29 0900 AC 09/09 SC 0825 Pantoprazole Sodium 40 MG DAILY@0600 08/29 0600 AC 09/10 Sesquihydrate PO 0554 Docusate Sodium 250 MG BID PRN 08/29 0115 AC 09/09 PO 0825 Ondansetron HCl 4 MG Q6H PRN 08/29 0115 AC IV Dose Instructions: (1)Bacitracin: APPLY TO OPEN AREAS Allergies Coded Allergies: NKA (08/29/16) Physical Exam Vital Signs / I&Os Vital Signs Date Time Temp Pulse Resp B/P Pulse O2 O2 Flow FiO2 Ox Delivery Rate 09/10 0656 99.0 89 18 122/76 97 Room Air 09/10 0347 98.8 87 14 128/78 97 Room Air 09/09 2148 Room Air 09/09 2130 99.1 92 18 128/81 99 09/09 1745 99.1 86 18 129/76 96 09/09 1400 99.1 94 16 127/76 98 04/ 1116 98.4 73 16 126/73 96 Room Air 09/09 0818 Room Air 0.0 I&O 09/10 0000 09/09 1600 09/09 0800 Intake Total 720 1390 Output Total 1020 1675 920 Balance -300 -285 -920 General Appearance Alert, Oriented X3, Cooperative, No acute distress Extremities No cyanosis, No clubbing, edema resolved and feet. Persistent areas of dry gangrene distal toes left foot. No signs of cellulitis at this time. Skin persistent skin changes on feet as previously noted. See general surgery notes. Neurological Grossly normal Psych/Mental Status Mental status normal, Mood normal LAB Results Laboratory Tests 09/10 04 0640 0800 Chemistry Total Bilirubin (0.0 - 1.0 mg/dL) 0.3 0.3 Direct Bilirubin (0 - 0.3 mg/dL) 0.1 0.1 AST (15 - 37 U/L) 26 33 ALT (12 - 78 U/L) 164 202 Alkaline Phosphatase (46 - 116 U/L) 153 155 Total Protein (6.4 - 8.2 g/dL) 7.9 7.5 Albumin (3.3 - 5.0 g/dL) 3.2 3.0 Hematology WBC (4.5 - 11.5 K/uL) 12.2 13.1 RBC (4.50 - 5.90 M/uL) 4.36 4.09 Hgb (13.5 - 17.5 gm/dL) 12.7 11.9 Hct (41.0 - 53.0 %) 38.4 36.1 MCV (80 - 100 fL) 88 88 MCH (26 - 34 pg) 29 29 RDW (11.6 - 14.8 %) 14.1 14.4 Neut % (Auto) (50 - 75 %) Pending 64 Lymph % (Auto) (25 - 40 %) Pending 22 [place] % (Auto) (3 - 14 %) Pending 9 Eos % (Auto) (0 - 4 %) 3 Baso % (Auto) (0 - 2 %) 0 Band Neutrophils % (0 - 8 %) Pending 2 Metamyelocytes % (0 - 1 %) 0 Myelocytes (0 - 1 %) 0 Other Cell Type 0 Plt Count, EDTA (150 - 400 K/uL) 546 514 RBC Morphology NORMAL RBC POP PUBS MCHC (31 - 37 g/dL) 33 33 Assessment and Plan Problem List 1. Frostbite of both feet Plan -Stable. -Awaiting demarcation in areas of frostbite. -No signs of superinfection -Continue follow-up with wound care/general surgery -Possible discharge in 1-2 days to outpatient setting with wound care follow-up. 2. Illicit drug use Status Chronic Onset Date Unknown Plan -Stable -We'll encourage enrollment in drug treatment program post hospitalization -Discharge planning to work with patient regarding enrollment in drug treatment 3. Elevated LFTs Status Acute Onset Date Unknown Plan -Improved -Continue monitoring 4. Cellulitis Status Acute Onset Date Unknown Plan -Resolved -WBC improved -Patient afebrile -Patient off antimicrobials at this time -Continue to monitor for infection and areas of previous frostbite 5. Rhabdomyolysis Status Acute Onset Date Unknown Plan -Resolved 6. Hyperglycemia Status Acute Onset Date Unknown Plan -Resolved Current status: Fair, improved Anticipated discharge date: Anticipated discharge in 1-2 days Anticipated discharge placement: Home versus alf facility Patient care time: Time spent in chart review, patient interview, physical exam, CPOE, and care documentation: 25 minutes Visit to patient today: 1 Complexity of care: Moderate E&M Codes Rounding: Inpt-Moderate/95152
--- NOTE | 2016-09-10 08:50 | NUR ---
RECEIVED PT IN BED, ON HIGH TYSON'S POSITION, ALMOST DONE WITH HIS BREAKFAST. ALERT, ORIENTED, COHERENT, COOPERATIVE. V/S TAKEN AND RECORDED. ASSESSMENT DONE. PT DOES NOT HAVE A SENSATION ON ALL OF HIS TOES. DRESSINGS ARE INTACT. PT PREFERS FOR ME TO CHANGE HIS DRESSINGS WHEN PAIN MEDICATION KICK IN. COMPLAINT OF PAIN ON BOTH FEET, MORE ON THE LEFT. ELEVATED BOTH LEGS WITH PILLOWS. KEEP PT COMFORTABLE. DUE MEDS GIVEN. AT 0900, PT'S MOM IS AT BEDSIDE.
--- NOTE | 2016-09-10 09:57 | Progress Note ---
Subjective General Pt. has no complaints, he feels fine. Physical Exam Vital Signs / I&Os Vital Signs Date Time Temp Pulse Resp B/P Pulse O2 O2 Flow FiO2 Ox Delivery Rate 09/10 0900 Room Air 0.0 09/10 0656 99.0 89 18 122/76 97 Room Air 09/10 0347 98.8 87 14 128/78 97 Room Air 09/09 2148 Room Air 09/09 2130 99.1 92 18 128/81 99 09/09 1745 99.1 86 18 129/76 96 09/09 1400 99.1 94 16 127/76 98 09/09 1116 98.4 73 16 126/73 96 Room Air I&O 09/09 0800 09/09 1600 09/10 0000 Intake Total 1390 720 Output Total 920 1675 1020 Balance -920 -285 -300 General Appearance Alert, Oriented X3, Cooperative, No acute distress Extremities The feet were examined and demonstrate dry gangrene of the toe tips which is starting to adequately demarcate. There is no wet gangrene, cellulitis , or crepitus. Assessment and Plan Problem List 1. Frostbite of both feet Plan will continue to allow the tissue to demarcate. At this point we are trying to preserve maximal tissue and will probably need to do some toe tip amputations this week. We may be able to use extracellular matrix to provide additional tissue growth and regeneration to minimize ultimate losses.
[2016-09-10 10:11] VITALS: BP 132/81
[2016-09-10 14:11] VITALS: BP 131/70
[2016-09-11 02:16] VITALS: BP 124/65
--- NOTE | 2016-09-11 06:01 | NUR ---
UNEVENTFUL NIGHT. PT SLEPT WELL. MEDICATED PRN FOR PAIN OF 7/10 IN FEET. VSS ON ROOM AIR. DRESSINGS ON FEET C/D/I. USED URINAL AT BEDSIDE. PRN STOOL SOFTENER GIVEN.
[2016-09-11 06:42] VITALS: BP 126/76
--- NOTE | 2016-09-11 07:50 | Progress Note ---
Subjective General Note Date: September 11, 2016 Admission Date: August 29, 2016 Hospital Day: 14 PCP: None Status: Inpatient Advanced Directive: Full Code Room: 208 Brief History: The patient is a 36-year-old white male with a previous history of psychiatric disease who presented to [facility] emergency department secondary to suspected frostbite of both feet. [facility] ER evaluation was consistent with probable frostbite both feet, auditory hallucinations. Secondary to the above, the patient was admitted by Hardy Jeffrey M.D. for further evaluation and treatment. For other history present illness, past medical history, family history, social history, review of systems, and admission physical examination please see the patient's history and physical examination and ER visit note in the patient's medical record. Subjective: The patient states doing well other than mildly increased pain in the feet. Pain worse with standing or feet being dependent Patient requests: Improved pain control Medications and Allergies Medications Current Medications Sig/Mateo Start time Last Medication Dose Route Stop Time Status Admin Oxycodone HCl 5 MG Q4H PRN 09/09 1600 AC 09/11 PO 0214 Bacitracin See Dose DAILY 09/03 0900 AC 09/10 Insts (1) TOP 0936 Diphenhydramine HCl 25 MG Q6H PRN 09/01 1100 AC 09/01 PO 1124 Multivit/ 1 TAB DAILY 08/31 1200 AC 09/10 Folic Acid/Iron PO 0850 Enoxaparin Sodium 40 MG DAILY 08/29 0900 AC 09/10 SC 0850 Pantoprazole Sodium 40 MG DAILY@0600 08/29 0600 AC 09/11 Sesquihydrate PO 0647 Docusate Sodium 250 MG BID PRN 08/29 0115 AC 09/10 PO 2112 Ondansetron HCl 4 MG Q6H PRN 08/29 0115 AC IV Dose Instructions: (1)Bacitracin: APPLY TO OPEN AREAS Allergies Coded Allergies: NKA (08/29/16) Physical Exam Vital Signs / I&Os Vital Signs Date Time Temp Pulse Resp B/P Pulse O2 O2 Flow FiO2 Ox Delivery Rate 09/11 0642 99.0 87 20 126/76 98 Room Air 09/11 0216 97.7 96 18 124/65 95 Room Air 09/10 2016 Room Air 09/10 1411 98.2 96 18 131/70 98 09/10 1011 99.3 102 18 132/81 98 Room Air 09/10 0900 Room Air 0.0 I&O /03 0000 / 1600 / 0800 Intake Total 360 1560 Output Total 550 1180 1530 Balance -190 380 -1530 General Appearance Alert, Oriented X3, Cooperative, No acute distress Lungs Clear to auscultation, Normal air movement Cardiovascular Regular rate and rhythm, Normal S1 and S2, No murmurs, gallops, rubs Abdomen Normal bowel sounds, Soft, No tenderness Extremities No cyanosis, No clubbing, No edema Neurological Cranial nerves intact, No lateralizing signs Psych/Mental Status Mental status normal, Mood normal Assessment and Plan Problem List 1. Frostbite of both feet Plan -Stable -Await Dr. Niño's recommendations regarding surgical debridement -Continue present therapy per Dr. Niño/Wound Care -Ongoing physical therapy evaluation treatment -Possible discharge in next 2 days if surgery not indicated until later date -Patient with persistent pain most severe with dependency/standing -We'll add ibuprofen 600 mg by mouth 4 times a day -PPI prophylaxis for gastric protection on nonsteroidals 2. Illicit drug use Status Chronic Onset Date Unknown Plan -Stable -Encourage enrollment in drug treatment program post hospitalization -We'll have discharge planning work with patient on enrollment in drug treatment here or in [facility] 3. Elevated LFTs Status Acute Onset Date Unknown Plan -Improved -Recheck in a.m. 4. Cellulitis Status Acute Onset Date Unknown Plan -No findings of cellulitis this time -Monitor 5. Rhabdomyolysis Status Acute Onset Date Unknown Plan -Resolved 6. Hyperglycemia Status Acute Onset Date Unknown Plan -Resolved Current status: Fair, improved Anticipated discharge date: Anticipated discharge in 2 days if no surgery is indicated Anticipated discharge placement: Home Patient care time: Time spent in chart review, patient interview, physical exam, CPOE, and care documentation: 25 minutes Visit to patient today: 1 Complexity of care: Moderate E&M Codes Rounding: Inpt-Moderate/05159
[2016-09-11 09:52] VITALS: BP 120/77
--- NOTE | 2016-09-11 10:28 | NUR ---
pt is in the middle of wound care. Will ck bk -09-25. pt is continueing to use slide board for transfer from bed to w/c. Recommend for pt to have slide board for transfers.
--- NOTE | 2016-09-11 11:23 | NUR ---
1120- given arginaid supplement per order. pt tolerated drsg change well reports pain is tolerable at this time.
--- NOTE | 2016-09-11 12:22 | NUR ---
In to see patient for dressing change, old dressings removed, some serosanginous drainage noted. There is Xeroform weaved in between toes, and over other areas. Bilat feet cleansed with NS. As we want the toes to be drying out per Dr. Sampson's orders, only adaptic was cut to fit over the few small open, red wound base areas. Gauze 2x2 pads placed between each toe, Bacitracin applied in thin layer over soles of both feet covered with ABD pad, Kerlix applied to both feet and secured. Pt tolerated procedure well with pre medication, Dr. Jeffrey in to visualize wounds as well. Mom in room watching dressing change along with pts RN. Will continue to monitor closely.
[2016-09-11 14:28] VITALS: BP 133/75
[2016-09-11 18:01] VITALS: BP 138/86
[2016-09-11 22:40] VITALS: BP 142/82
[2016-09-12 03:06] VITALS: BP 136/86
[2016-09-12 06:25] VITALS: BP 126/77
--- NOTE | 2016-09-12 10:08 | NUR ---
pt supine in bed with mother in room. pt agreeable to skilled PT intervention. pt completed supine to sit I. pt completed sit to stand Min A with bed elevated about 2 inches. pt took side steps along the bed side and was steady and balanced on his feet. pt requested to take a break and lift his feet up. He c/o of 8/10 pain. pt rested for 5minutes before completing a step pivot transfer to the w/c. Once seated it was noted there was some saturation coming through the bandage. RN notified. pt pushed self in w/c around the hallways 250ft. pt completed a scoot pivot transfer from w/c to bed Mod I. pt voiced concerns about d/cing to his mom's house as there are 14 steps he would need to go up. pt educated on ways to safely negotiate stairs and pt and this PT agreed that scooting up the stairs on his bottom would be safest. pt would be safe to d/c home with mom. pt will need HHPT, W/C and possible FWW. per d/c planning w/c has been ordered.
[2016-09-12 11:15] VITALS: BP 111/69
--- NOTE | 2016-09-12 12:12 | Progress Note ---
Subjective General no new complaints, i discussed plans-pt. wants to go to [place] with his mom. Physical Exam Vital Signs / I&Os Vital Signs Date Time Temp Pulse Resp B/P Pulse O2 O2 Flow FiO2 Ox Delivery Rate 09/12 1115 98.1 92 18 111/69 93 Room Air 0.0 09/12 0758 Room Air 09/12 0625 97.7 81 22 126/77 97 Room Air 0.0 09/12 0306 98.6 118 20 136/86 98 Room Air 09/12 0005 Room Air 09/11 2240 97.9 96 18 142/82 98 Room Air 09/11 1801 98.4 99 20 138/86 98 Room Air 09/11 1800 Room Air 09/11 1428 98.4 99 20 133/75 98 Room Air I&O 09/11 0800 09/11 1600 09/12 0000 Intake Total 830 1640 Output Total 1750 1300 600 Balance -1750 -470 1040 Extremities toes are demarcating and mummifying in the distal parts. Assessment and Plan Problem List 1. Frostbite of both feet Plan keep toes protected. I anticipate we can set up a completion amputation and debridement in about a week. Pt. wished to return here for the surgery and we should be able to set it up without a pre op visit since he will be coming from [place]. Otherwise wound care can be arranged in [facility] also, especially if there are open area left after removal of the necrotic areas.
--- NOTE | 2016-09-12 12:12 | Progress Note ---
Subjective General no new complaints, i discussed plans-pt. wants to go to [place] with his mom. Physical Exam Vital Signs / I&Os Vital Signs Date Time Temp Pulse Resp B/P Pulse O2 O2 Flow FiO2 Ox Delivery Rate 09/12 1115 98.1 92 18 111/69 93 Room Air 0.0 09/12 0758 Room Air 09/12 0625 97.7 81 22 126/77 97 Room Air 0.0 09/12 0306 98.6 118 20 136/86 98 Room Air 09/12 0005 Room Air 09/11 2240 97.9 96 18 142/82 98 Room Air 09/11 1801 98.4 99 20 138/86 98 Room Air 09/11 1800 Room Air 09/11 1428 98.4 99 20 133/75 98 Room Air I&O 09/11 0800 09/11 1600 09/12 0000 Intake Total 830 1640 Output Total 1750 1300 600 Balance -1750 -470 1040 Extremities toes are demarcating and mummifying in the distal parts. Assessment and Plan Problem List 1. Frostbite of both feet Plan keep toes protected. I anticipate we can set up a completion amputation and debridement in about a week. Pt. wished to return here for the surgery and we should be able to set it up without a pre op visit since he will be coming from [place]. Otherwise wound care can be arranged in [facility] also, especially if there are open area left after removal of the necrotic areas.
--- NOTE | 2016-09-12 13:30 | NUR ---
NUTRITION FOLLOW UP NOTE: Pt continues with good po intake, ~100% with meals and snacks. Pt continues on muscle milk q milk as well as mutlivitamin with mineral daily. Rev'd meds and labs. Rev'd MD notes, discharge plans pending as well as surgical plans. Rec continue current diet with high protein supplements to help support healing. RD to follow up per protocol and avail for consult prn.
[2016-09-12 14:30] VITALS: BP 134/73
--- NOTE | 2016-09-12 14:31 | NUR ---
DRESSINGS CHANGED TO BILAT LOWER EXTREMITIES PER WOUND CARE ORDERS. PATIENT TOLERATED WELL. SHOWED WOUNDS TO DR. CORCORAN. DR. THORPE ALSO VISISTED WITH PATIENT TODAY TO ANSWER QUESTIONS. PATIENT REPORTS FEELING "SLIGHTLY DEPRESSED" NOTIFIED HOSPITALIST AND SURGEON. YAMEL
--- NOTE | 2016-09-12 16:02 | DIAGNOSTIC IMAGING REPORT ---
PROCEDURE: CT LOWER EXT W/CONTRAST-RIGHT INDICATION: FROSTBITE, R/O NEC FASCIITIS, FOREIGN BODY TECHNIQUE: Axial thin-slice CT images were obtained through the feet following uncomplicated administration of 125 ml Isovue 300 IV contrast. Coronal and sagittal reformations were created. COMPARISON: None. FINDINGS: Soft tissues: Moderate to significant subcutaneous edema beginning just above the ankle joints, mainly laterally and medially. Smooth extensive subcutaneous edema extends distally over the dorsum of the feet. Along the plantar surface of both feet, there are large of fluid-filled blisters, right more extensive than left, arising from the skin surface. The underlying skin surface appears normal. No gas within the fluid collections or within the soft tissues. No evidence of radiodense foreign body below the skin surface. The musculature appears symmetric. The vasculature appears normal. Tendon groups are normal. Bones: No fractures. Mineralization is symmetric. No suspicious periostitis. Normal bony alignment. IMPRESSION: 1. Smooth fluid-filled blisters along the plantar surface of both feet without evidence of gas-forming organism or underlying radiodense foreign body. 2. Fairly extensive subcutaneous edema medial and lateral in the feet extending cranial towards the ankles. 3. Osseous structures appear normal.
--- NOTE | 2016-09-12 18:17 | Progress Note ---
Subjective General Pt seen and examined. Patient is stable, dressing changes were leonardo with myself present. Constitutional Denies: Fever, Chills, Sweats, Weakness, Malaise, Other. Eyes Denies: Pain, Vision Change, Conjunctival Inflammation, Eyelid Inflammation, Redness, Other. ENT Denies: Ear Pain, Ear Discharge, Nose Pain, Nasal Discharge, Nasal Congestion, Mouth Pain, Mouth Swelling, Throat Pain, Throat Swelling, Other. Respiratory Denies: Cough, Dry, SOB w/exertion, Wheezing, Hemoptysis, Pleuritic Pain, Sputum , Other. Cardiovascular Denies: Chest Pain, Palpitations, Orthopnea, PND, Edema, Light-headedness, Other. Gastrointestinal Denies: Nausea, Vomiting, Abdominal Pain, Diarrhea, Constipation, Melena, Hematochezia, Other. Genitourinary Denies: Dysuria, Frequency, Incontinence, Hematuria, Retention, Other. Musculoskeletal Denies: Neck Pain, Shoulder Pain, Arm Pain, Back Pain, Hand Pain, Leg Pain, Foot Pain, Other. Skin Denies: Rash, Lesions, Jaundice, Bruising, Other. Neurological Denies: Weakness, Numbness, Incoordination, Change in speech, Confusion, Seizures, Other. Physical Exam Vital Signs / I&Os Vital Signs Date Time Temp Pulse Resp B/P Pulse O2 O2 Flow FiO2 Ox Delivery Rate 09/12 1632 0.0 09/12 1430 98.2 97 22 134/73 96 Room Air 0.0 09/12 1115 98.1 92 18 111/69 93 Room Air 0.0 09/12 0758 Room Air 09/12 0625 97.7 81 22 126/77 97 Room Air 0.0 09/12 0306 98.6 118 20 136/86 98 Room Air 09/12 0005 Room Air 09/11 2240 97.9 96 18 142/82 98 Room Air I&O 09/11 0800 / 1600 09/12 0000 Intake Total 830 1640 Output Total 1750 1300 600 Balance -1750 -470 1040 General Appearance Alert, Oriented X3, No acute distress HEENT Atraumatic, PERRLA, Moist mucous membranes Lungs Clear to auscultation, Normal air movement Neck Supple, No JVD, No masses Cardiovascular Normal S1 and S2 Abdomen Soft, No tenderness Extremities - demarcation occuring on the right foot, noticably in the first and second two - the left foot reveals stable wound compared to before Skin No Breakdown Neurological Normal speech, Cranial nerves intact, - unable to walk up stairs due to parathesiass Psych/Mental Status Mood normal LAB Results Laboratory Tests 09/12 0520 Chemistry Plasma Sodium (136 - 145 mmol/L) 139 Plasma Potassium (3.5 - 5.1 mmol/L) 4.6 Plasma Chloride (98 - 107 mmol/L) 101 CO2 (Enzymatic) (21 - 32 mmol/L) 29 BUN (7 - 18 mg/dL) 22 Creatinine (0.6 - 1.3 mg/dL) 0.8 Est GFR ( Amer) (mL/min) >60 Est GFR (Non-Af Amer) (mL/min) >60 Glucose (70 - 110 mg/dL) 99 Plasma Calcium (8.5 - 10.1 mg/dL) 9.5 Total Bilirubin (0.0 - 1.0 mg/dL) 0.2 AST (15 - 37 U/L) 23 ALT (12 - 78 U/L) 94 Alkaline Phosphatase (46 - 116 U/L) 130 Total Protein (6.4 - 8.2 g/dL) 7.5 Albumin (3.3 - 5.0 g/dL) 3.1 Hematology WBC (4.5 - 11.5 K/uL) 12.1 RBC (4.50 - 5.90 M/uL) 4.21 Hgb (13.5 - 17.5 gm/dL) 12.1 Hct (41.0 - 53.0 %) 37.1 MCV (80 - 100 fL) 88 MCH (26 - 34 pg) 29 RDW (11.6 - 14.8 %) 14.1 Neut % (Auto) (50 - 75 %) 59 Lymph % (Auto) (25 - 40 %) 31 [place] % (Auto) (3 - 14 %) 5 Eos % (Auto) (0 - 4 %) 4 Baso % (Auto) (0 - 2 %) 1 Band Neutrophils % (0 - 8 %) 0 Metamyelocytes % (0 - 1 %) 0 Myelocytes (0 - 1 %) 0 Other Cell Type 0 Plt Count, EDTA (150 - 400 K/uL) 548 Anisocytosis (manual) 1+ PUBS MCHC (31 - 37 g/dL) 33 Assessment and Plan Problem List 1. Frostbite of both feet Plan -Ongoing physical therapy evaluation treatment -Possible discharge in next 2 days if surgery not indicated until later date -Patient with persistent pain most severe with dependency/standing -We'll add ibuprofen 600 mg by mouth 4 times a day -No plans for surgery during this week, will revisit surgical options upon return to surgical clinic 2. Illicit drug use Status Chronic Onset Date Unknown Plan - will encourage for patient to seek drug rehab help if pt wishes 3. Elevated LFTs Status Acute Onset Date Unknown Plan - improving compared to previous week - could be a result of the heavy acetaminophen use the patient has been taking - will continue to trend 4. Rhabdomyolysis Status Acute Onset Date Unknown Plan - resolved
[2016-09-12 18:25] VITALS: BP 129/83
--- NOTE | 2016-09-12 20:07 | NUR ---
PATIENT IS ALERT AND ORIENTED. DRESSINGS C/D/I ON BOTH FEET. IS RESTING IN ROOM NOW. WAS PASSED OFF IN REPORT DR IS AWARE OF CURRENT LAB VALUES. GETTING LOVONOX INJECTIONS FOR DVT PREVENTION. ENCOURAGING IS.
[2016-09-12 23:15] VITALS: BP 132/72
[2016-09-13 02:53] VITALS: BP 137/82
[2016-09-13 07:12] VITALS: BP 114/76
--- NOTE | 2016-09-13 08:30 | NUR ---
PATIENT HAS NO COMPLAINTS THIS MORNING, PAIN DOWN TO 2/10 AFTER PERCOCET GIVEN THIS AM. AWARE HE HAS PRN PO IBUPROFEN WELL. DOES NOT WANT THIS AT THIS MOMENT YET. NO NAUSEA NO VOMITTING. STATES HE HAS "TWINKLE TOES" MEANING NUMBESS TO BILAT FEET, DOES NOT EXTEND TO THE UPPER THIGHS OR ABOVE THE TOES. WILL CONTINUE TO MONITOR.
[2016-09-13 10:35] VITALS: BP 133/86
--- NOTE | 2016-09-13 10:42 | NUR ---
[facility] RN, IN THE ROOM FOR DRESSING CHANGE. NOTIFIED DR CORCORAN.
--- NOTE | 2016-09-13 11:33 | NUR ---
pt completed scoot pivot transfer to the w/c. pt negotiated w/c and wheeled out to stairs. This PT demonstrated negotiating stairs by scooting on the bottom. This will be the safest option for patient as he frequently rushes when in pain. pt pushed himself around hallway 250ft. pt is safe to return home with mom once medically cleared. pt has w/c ordered. pt may need a FWW to negotiate bathroom. pt left in w/c as he wanted to stay out of room for a little longer.
--- NOTE | 2016-09-13 11:54 | NUR ---
PATIENT'S DRESSING CHANGED BY MANAGER EMERGENCY DEPARTMENT. PHYSICAL THERAPY WORKED WITH PATIENT WITH A WHEELCHAIR. PATIENT NOW ROLLING AROUND IN WHEELCHAIR ON THE FLOOR, HAS NO COMPLAINTS AND NO PAIN AT THIS TIME. WILL CONTINUE TO MONITOR.
--- NOTE | 2016-09-13 12:52 | NUR ---
In to see patient and do dressing change, old dressings removed, small amount of serosanginous drainage noted to dressings. WOunds cleansed with NS, Bacitracin applied to sole of feet and any open red areas on feet, covered with adaptic, moisturizer to dry areas on feet. ABD pad to soles of feet, and then wrapped all in kerlix to protect feet. Pt tolerated procedure well, dressing change documented for mom, will continue to prepare for discharge tomorrow. Still awaiting appt time for patient next week with Dr. Niño, have called both of his offices and they dont have openings, but are trying to work together to find a slot.
[2016-09-13 14:46] VITALS: BP 134/90
--- NOTE | 2016-09-13 17:48 | NUR ---
PT IS A&OX3, LS CTA AND BT ACTIVE. C/O PAIN AT A 6/10 IN BILATERAL FEET, PAIN MEDS GIVEN. NO C/O NAUSEA. VERY LITTLE SENSATION IN ALL TOES, AND LITTLE MOVMENT IN TOES. MOVING TO WHEEL CHAIR IND, WHEELING AROUND UNIT AND HALLWAYS WELL. FEET DRESSINGS ARE C/D/I. RESTING W/ CALL LIGHT IN REACH.
--- NOTE | 2016-09-13 18:08 | Progress Note ---
Subjective General Pt seen and examined. Making arrangments for discharge, no acute events overnight. Constitutional Denies: Fever, Chills, Sweats, Weakness, Malaise, Other. ENT Denies: Ear Pain, Ear Discharge, Nose Pain, Nasal Discharge, Nasal Congestion, Mouth Pain, Mouth Swelling, Throat Pain, Throat Swelling, Other. Respiratory Denies: Cough, Dry, SOB w/exertion, Wheezing, Hemoptysis, Pleuritic Pain, Sputum , Other. Cardiovascular Denies: Chest Pain, Palpitations, Orthopnea, PND, Edema, Light-headedness, Other. Gastrointestinal Denies: Nausea, Vomiting, Abdominal Pain, Diarrhea, Constipation, Melena, Hematochezia, Other. Genitourinary Denies: Dysuria, Frequency, Incontinence, Hematuria, Retention, Other. Musculoskeletal Denies: Neck Pain, Shoulder Pain, Arm Pain, Back Pain, Hand Pain, Leg Pain, Foot Pain, Other. Skin Denies: Rash, Lesions, Jaundice, Bruising, Other. Neurological Denies: Weakness, Numbness, Incoordination, Change in speech, Confusion, Seizures, Other. Physical Exam General Appearance Alert, Oriented X3, No acute distress HEENT Normal exam, PERRLA Lungs Clear to auscultation, Normal air movement Cardiovascular Normal S1 and S2, No murmurs, gallops, rubs Abdomen Normal bowel sounds, Soft, No tenderness, No hepatosplenomegaly Extremities No cyanosis, No edema Skin - isabella demarcation present - no evidence of fluctuation - will need wound care follow up Neurological Normal speech, Normal tone, Sensation intact, Cranial nerves intact , Strength 5/5 x4 ext's, No lateralizing signs Psych/Mental Status Mood normal Assessment and Plan Problem List 1. Frostbite of both feet Plan - clear demarcation present - no use for further antibiotics - will need wound follow up as an out patient - arrangements have been made - PT cleared patient for discharge 2. Elevated LFTs Status Acute Onset Date Unknown Plan - resolved 3. Illicit drug use Status Chronic Onset Date Unknown Plan - pt provided information with out patient drug treatment facilities
[2016-09-13 18:40] VITALS: BP 132/90
[2016-09-13 22:42] VITALS: BP 139/87
--- NOTE | 2016-09-14 01:42 | NUR ---
PT ALERT AND ORIENTED, COOPERATIVE WITH CARE. NO DISTRESS NOTED. PT ABLE TO MAKE NEEDS KNOWN. VSS. DIMINISHED SENSATION IN BLE. DRESSING C/D/I. PT GIVEN HS SNACK THIS EVENING. PRN PAIN MEDICATION GIVEN FOR 6/10 PAIN IN BLE. BED IN LOWEST POSITION, CALL LIGHT IN REACH, WCTM.
[2016-09-14 02:14] VITALS: BP 120/72
[2016-09-14 07:30] VITALS: BP 125/80
[2016-09-14 11:01] VITALS: BP 123/69
--- NOTE | 2016-09-14 11:40 | NUR ---
Checked in with patient. pt has w/c. Recommendation for FWW was given and told pt to get a FWW vs a p/u walker or a 4WW for transfers on/off the toilet. pt states he feels safe with getting into his mom's house.
[2016-09-14] MEDS ORDERED: [UNRECOGNIZED DRUG - REMARK] TOP (13:24)
[2016-09-14] MEDS ORDERED: [UNRECOGNIZED DRUG - SUPPLY] TOP (13:25)
[2016-09-14] MEDS ORDERED: [UNRECOGNIZED DRUG - OTHER] TOP (13:25)
[2016-09-14] MEDS ORDERED: PERCOCET1 TA1 PO (13:44)
--- NOTE | 2016-09-14 14:43 | Discharge Summary ---
Discharge Summary Report Admit Date 08/29/16 Discharge Date 09/14/16 Admission Diagnosis frostbite of bilateral feet Discharge Diagnosis frostbite of bilateral feet Brief History please refer to original H&P Hospital Course Patient was admitted for frostbite of bilateral feet. Patient initially had general swelling and erythema of bilateral feet. Patient was started on zosyn and vancomycin. Patients wounds began to form blisters and there were a few that exhibited hemorrhagic components. Patient as a result went in for debridement and patient had deroofing of the blisters and debridement of the non-viable tissue. Patient tolerated the procedure well and completed a seven day course of antibiotics. Patient underwent daily dressing changes and all potential areas of infection were minimized. Patient was seen by the general surgeon who felt that in this moment the patients wounds were stable and that the patient can return in a one week for re-evaluation. Patient at the moment is stable for discharge. Patient has wound care set up near his mothers house, additionally patient will return for re-evaluation in 1 weeks time. Patient is otherwise stable for discharge. General Appearance Alert, Oriented X3, No acute distress HEENT PERRLA, Mucous membran moist/pink Lungs Normal air movement Cardiovascular Normal S1, Normal S2, No murmurs Abdomen No tenderness Neurological Normal tone, Sensation intact, Cranial nerves 3-12 NL Discharge Instructions/Meds - daily dressing changes - return in 1 week for surgical clinic
--- NOTE | 2016-09-14 15:20 | Provider's Discharge Care Plan ---
Problem, Goal, Plan Problem List 1. Frostbite of both feet Instructions: Follow up as directed, - wound care daily 2. Elevated LFTs Instructions: - avoid taking tylenol (acetaminophen)
--- NOTE | 2016-09-14 17:04 | NUR ---
AROUND 1620 PT WAS GIVEN ALL DOCUMENTS, WENT OVER INFO AND ANSWERED QUESTIONS. PROVIDED HAND HYGIENE INFO FOR FOOT CARE. SIGNED DOCS. JOSE ESCORTED MOTHER AND SON TO DOOR. SCRIPTS IN HAND ALONG WITH PERSONAL ITEMS. PT IS ON THE WAY TO [place].
== END 2016-09-14 16:20 | disposition home health service (06) | DRG 815 ==
LOC: ED SRH 18:06 → TRANS SRH 08-29 00:24 → ACUTE2 SRH 08-29 00:24 → TRANS SRH 08-29 00:24 → ACUTE2 SRH 08-29 01:52
PROVIDERS: Specialist; ADMIT Internal Medicine
PROC: 0HBNXZZ Excision of Left Foot Skin, External Approach (ICD-10-PCS; principal; 2016-09-02 10:00)
PROC: 0HBMXZZ Excision of Right Foot Skin, External Approach (ICD-10-PCS; principal; 2016-09-02 10:00)
DX: T34.832A Frostbite with tissue necrosis of left toe(s), initial encounter (principal); T34.831A Frostbite with tissue necrosis of right toe(s), initial encounter; T34.822A Frostbite with tissue necrosis of left foot, initial encounter; T34.821A Frostbite with tissue necrosis of right foot, initial encounter; X31.XXXA Exposure to excessive natural cold, initial encounter; Y93.29 Activity, other involving ice and snow; Y92.828 Other wilderness area as the place of occurrence of the external cause; Y99.8 Other external cause status; M62.82 Rhabdomyolysis; E87.1 Hypo-osmolality and hyponatremia; F15.151 Other stimulant abuse with stimulant-induced psychotic disorder with hallucinations; R74.8 Abnormal levels of other serum enzymes; S80.812A Abrasion, left lower leg, initial encounter; S80.811A Abrasion, right lower leg, initial encounter; S50.812A Abrasion of left forearm, initial encounter; S50.811A Abrasion of right forearm, initial encounter; F17.210 Nicotine dependence, cigarettes, uncomplicated